=== PATIENT | female | born 1940 | race Asian ===

== ENCOUNTER → 2017-01-30 | Outpatient (CLI) | payer MEDICARE, OTHER ==
[~2017-01-30] MED LIST: ANUSHCS PR; ASCO500 PO; CHOL100062 PO; CYCL30DR OU; DOCU250C28 PO; DOCU250C91 PO; FERR-89 PO; FISH1CAP27 PO; FLU15OS OP; FURO20 PO; GLUC1CAP3 PO; LOSA50TA37 PO; METO100XL PO; METO50 PO; MULT1CAP32 PO; OMEP20 PO; POTA8TAB4 PO; SIMV-260 PO; UBID100C24 PO; VITA100049 PO; VITAD400 PO
== END | disposition home or self-care (01) ==
LOC: RADMN 08:26
PROVIDERS: ATTEND Internal Medicine Cardiovascular Disease
DX: M48.061 Spinal stenosis, lumbar region without neurogenic claudication (principal); M48.07 Spinal stenosis, lumbosacral region; M48.56XA Collapsed vertebra, not elsewhere classified, lumbar region, initial encounter for fracture; M47.816 Spondylosis without myelopathy or radiculopathy, lumbar region; M81.0 Age-related osteoporosis without current pathological fracture; I35.0 Nonrheumatic aortic (valve) stenosis
CPT/HCPCS: 72131

== ENCOUNTER 2017-02-03 09:02 | Day surgery (SDC) | payer MEDICARE, OTHER ==
[~2017-02-03] VITALS: Ht 149.9 cm; Wt 47.7 kg
[~2017-02-03 09:02] MED LIST changes: +0.9% SODIUM CHLORIDE 10 ML SYRINGE IVP ONE; +0.9% SODIUM CHLORIDE 10 ML SYRINGE IVP PRN; -ANUSHCS PR; -CHOL100062 PO; -DOCU250C28 PO; -FLU15OS OP; -FURO20 PO; -METO100XL PO; +METOPROLOL TARTRATE 50 MG TABLET PO ONE; -MULT1CAP32 PO; -OMEP20 PO; -VITA100049 PO
[2017-02-03 10:13] LABS: ANION GAP 8 mmol/L (8-16); CARBON DIOXIDE 28 mmol/L (22-29); CHLORIDE 107 mmol/L (98-107); CREATININE 0.47 mg/dL (0.60-1.30); GLOMERULAR FILTR. RATE CALC > 60 mL/min (>60); POTASSIUM 4.2 mmol/L (3.5-5.1); SODIUM SERUM 143 mmol/L (136-145); UREA NITROGEN, BLOOD 15 mg/dL (7-18)
[2017-02-03] MEDS ORDERED: NITROGLYCERIN 400 MCG/SUBLINGUAL SPRAY 4.9 GM BOTTLE SL ONE (11:06)
[2017-02-03] MEDS ORDERED: METOPROLOL TARTRATE 5 MG/5 ML VIAL ONE (11:06)
[2017-02-03] MEDS ORDERED: IOVERSOL 350 MG/ML 100 ML VIAL ONE (11:28)
== END 2017-02-03 12:30 | disposition home or self-care (01) ==
LOC: SURGERY 09:02
PROVIDERS: ATTEND Internal Medicine Cardiovascular Disease
DX: I25.10 Atherosclerotic heart disease of native coronary artery without angina pectoris (principal); Z79.899 Other long term (current) drug therapy; Z98.890 Other specified postprocedural states; Z90.89 Acquired absence of other organs; Z98.42 Cataract extraction status, left eye; Z98.41 Cataract extraction status, right eye; Z86.79 Personal history of other diseases of the circulatory system
CPT/HCPCS: 36415; 75574; 80048; 93005; Q9967; J3490

== ENCOUNTER 2018-03-23 19:10 | Inpatient (IN) | payer MEDICARE, OTHER ==
[~2018-03-23] VITALS: Ht 152.4 cm; Wt 49.2 kg
[~2018-03-23 19:10] MED LIST changes: -0.9% SODIUM CHLORIDE 10 ML SYRINGE IVP ONE; -0.9% SODIUM CHLORIDE 10 ML SYRINGE IVP PRN; -LOSA50TA37 PO; +LOSA50TA64 PO; -METOPROLOL TARTRATE 50 MG TABLET PO ONE
[2018-03-23] MEDS ORDERED: PROPOFOL 1000 MG/ISO-OSM 100 ML IV PRN (19:29)
[2018-03-23 19:53] LABS: BASOPHILS % (AUTO) 0.8 % (0.0-2.0); EOSINOPHILS % (AUTO) 1.5 % (1.0-6.0); HEMATOCRIT 41.6 % (36-46); HEMOGLOBIN 13.5 g/dL (12.0-16.0); LYMPHOCYTES # (AUTO) 6.3 K/uL (1.0-4.8); LYMPHOCYTES % (AUTO) 35.7 % (22.0-44.0); MEAN CORPUSCULAR HGB CONC 32.4 G/dL (31.0-37.0); MEAN CORPUSCULAR VOLUME 99 fL (80-100); MONOCYTES % (AUTO) 5.7 % (2.0-9.0); NEUTROPHILS # (AUTO) 9.9 K/uL (1.8-7.7); NEUTROPHILS % (AUTO) 56.3 % (40.0-70.0); PLATELET COUNT (AUTO) 208 K/uL (150-450); RED BLOOD CELL COUNT(AUTO) 4.21 MIL/uL (4.00-5.20); RED CELL DISTRIBUTION WIDTH 13.1 % (11.5-14.5)
[2018-03-23 20:05] LABS: CALCIUM, TOTAL 9.4 mg/dL (8.8-10.5); CREATININE 0.93 mg/dL (0.60-1.30); POTASSIUM 3.3 mmol/L (3.5-5.1)
[2018-03-23 20:06] LABS: INR 0.9 (0.9-1.1); PROTHROMBIN TIME 9.9 SEC (9.4-11.6)
[2018-03-23 20:29] LABS: ALBUMIN 3.8 g/dL (3.4-5.0); BILIRUBIN,TOTAL 0.5 mg/dL (0.1-1.0); TOTAL PROTEIN, SERUM 8.8 g/dL (6.4-8.2)
[2018-03-23 20:42] LABS: LACTIC ACID 6.5 mmol/L (0.4-2.0)
[2018-03-23] MEDS ORDERED: SODIUM CHLORIDE 0.9% 1,000 ML IV ONE ×2 (21:13→22:00)
[2018-03-23] MEDS ORDERED: SODIUM CHLORIDE 0.9% 1,000 ML, SODIUM CHLORIDE 0.9% 1,000 ML IV ONE (21:30)
[2018-03-23 21:56] LABS: APPEARANCE,URINE CLEAR (CLEAR); BILIRUBIN,URINE NEGATIVE (NEGATIVE); GLUCOSE, URINE (UA) 100 mg/dL (NEGATIVE); KETONES,URINE NEGATIVE (NEGATIVE); LEUKOCYTE ESTERASE ,URINE NEGATIVE (NEGATIVE); NITRATE,URINE NEGATIVE (NEGATIVE); OCCULT BLOOD,URINE SMALL (NEGATIVE); PROTEIN,URINE SEE CONFIRM (NEGATIVE); UROBILINOGEN,URINE 0.2 mg/dL (<=1.0)
[2018-03-23 22:01] LABS: AMPHET/METH SCREEN,URINE NEGATIVE (NEGATIVE); BARBITURATE SCREEN, URINE NEGATIVE (NEGATIVE); BENZODIAZEPINES SCREEN,URINE NEGATIVE (NEGATIVE); CANNABINOID SCREEN,URINE NEGATIVE (NEGATIVE); COCAINE SCREEN,URINE NEGATIVE (NEGATIVE); METHADONE SCREEN, URINE NEGATIVE (NEGATIVE); OPIATE SCREEN,URINE NEGATIVE (NEGATIVE)
[2018-03-23 22:04] LABS: PHENCYCLIDINE SCREEN,URINE NEGATIVE (NEGATIVE)
[2018-03-23 22:30] LABS: SULFOSALICYLIC ACID,URINE 2+ (Negative)
[2018-03-23 22:31] LABS: BACTERIA,URINE Rare /HPF (None Seen); SQUAMOUS EPITHELIAL CELL,UR Few /LPF (None Seen)
[2018-03-23] MEDS ORDERED: IPRATROPIUM BROMIDE 0.5 MG/2.5 ML NEB SOLUTION NEB ONE (22:45)
[2018-03-23] MEDS ORDERED: ALBUTEROL SULFATE 5 MG/ML 20 ML NEB SOLN [BULK] NEB ONE (22:45)
[2018-03-23] MEDS ORDERED: 0.9% SODIUM CHLORIDE 10 ML SYRINGE IVP PRN (22:45)
[2018-03-23] MEDS ORDERED: ACETAMINOPHEN 325 MG TABLET PO PRN (22:45)
[2018-03-23] MEDS ORDERED: AZITHROMYCIN 500 MG/NS 250 ML IV ONE (22:45)
[2018-03-23] MEDS ORDERED: CefTRIAXone 1 GM/DEXTROSE 50 ML IV ONE (22:45)
[2018-03-23] MEDS ORDERED: POTASSIUM CHLORIDE 20 MEQ ER TABLET PO ONE (22:45)
[2018-03-23] MEDS ORDERED: MAGNESIUM SULFATE 2 GM/WATER 50 ML IV PRN (23:00)
[2018-03-23] MEDS ORDERED: ALBUTEROL SULFATE 2.5 MG/0.5 ML NEB SOLUTION NEB PRN (23:00)
[2018-03-23] MEDS ORDERED: MAGNESIUM SULFATE 4 GM/WATER 100 ML IV PRN (23:00)
[2018-03-23] MEDS ORDERED: MAGNESIUM HYDROXIDE SUSPENSION 30 ML UDCUP PO PRN (23:00)
[2018-03-23] MEDS ORDERED: ONDANSETRON HCL 4 MG/2 ML VIAL IVP PRN (23:00)
[2018-03-23] MEDS ORDERED: POTASSIUM CHL 10 MEQ/WATER 50 ML IV PRN (23:00)
[2018-03-23] MEDS ORDERED: POTASSIUM CHLORIDE 20 MEQ ER TABLET PO PRN (23:00)
[2018-03-23] MEDS ORDERED: BISACODYL 10 MG RECTAL RECTAL SUPPOSITORY PR PRN (23:00)
[2018-03-23] MEDS ORDERED: MAGNESIUM OXIDE 400 MG TABLET PO PRN (23:00)
[2018-03-23] MEDS ORDERED: OxyCODONE HCL/ACETAMINOPHEN 5-325 MG TABLET PO PRN (23:00)
[2018-03-23] MEDS ORDERED: ZOLPIDEM TARTRATE 5 MG TABLET PO PRN (23:00)
[2018-03-23] MEDS ORDERED: MORPHINE SULFATE 4 MG/ML SYRINGE IVP PRN (23:00)
[2018-03-23] MEDS ORDERED: 0.9% SODIUM CHLORIDE 5 ML NEB SOLUTION NEB ONE (23:17)
[2018-03-23 23:30] VITALS: BP 116/56
[2018-03-24] MEDS ORDERED: SODIUM CHLORIDE 0.9% 250 ML IV ONE (00:27)
[2018-03-24 03:55] VITALS: BP 96/53
[2018-03-24] MEDS ORDERED: PNEUMOCOCCAL VACCINE POLYVALENT 0.5 ML VIAL [PPSV23] IM ONE (04:15)
[2018-03-24 06:24] LABS: BASOPHILS % (AUTO) 0.2 % (0.0-2.0); EOSINOPHILS % (AUTO) 0.1 % (1.0-6.0); HEMATOCRIT 34.9 % (36-46); LYMPHOCYTES # (AUTO) 0.7 K/uL (1.0-4.8); LYMPHOCYTES % (AUTO) 6.1 % (22.0-44.0); MEAN CORPUSCULAR HEMOGLOBIN 32.6 pg (26.0-34.0); MEAN CORPUSCULAR HGB CONC 34.4 G/dL (31.0-37.0); MEAN CORPUSCULAR VOLUME 95 fL (80-100); MONOCYTES # (AUTO) 0.7 K/uL (0.1-1.0); MONOCYTES % (AUTO) 6.3 % (2.0-9.0); NEUTROPHILS # (AUTO) 10.1 K/uL (1.8-7.7); PLATELET COUNT (AUTO) 168 K/uL (150-450); RED BLOOD CELL COUNT(AUTO) 3.69 MIL/uL (4.00-5.20)
[2018-03-24 06:34] LABS: HEMOGLOBIN A1C 5.7 % (4.5-6.2)
[2018-03-24 06:35] LABS: ALANINE AMINOTRANSFERASE 26 U/L (12-78); ALKALINE PHOSPHATASE 78 U/L (46-116); ANION GAP 9 mmol/L (8-16); ASPARTATE AMINOTRANSFERASE 38 U/L (15-37); BILIRUBIN,TOTAL 0.4 mg/dL (0.1-1.0); CARBON DIOXIDE 27 mmol/L (22-29); CHLORIDE 107 mmol/L (98-107); CREATININE 0.76 mg/dL (0.60-1.30); GLUCOSE,RANDOM 122 mg/dL (70-110); PHOSPHORUS 3.3 mg/dL (2.5-4.9); POTASSIUM 3.3 mmol/L (3.5-5.1); SODIUM SERUM 143 mmol/L (136-145); UREA NITROGEN, BLOOD 18 mg/dL (7-18)
[2018-03-24 06:42] LABS: NEUTROPHILS % (AUTO) 87.3 % (40.0-70.0)
[2018-03-24 06:50] LABS: GLOMERULAR FILTR. RATE CALC > 60 mL/min (>60)
[2018-03-24 07:19] VITALS: BP_SYST 107; BP_SYST 116; BP_DIAS 51; BP_DIAS 58
[2018-03-24] MEDS: CHOLECALCIFEROL (VIT D3) 400 UNITS TABLET PO SCH (08:11)
[2018-03-24] MEDS: PANTOPRAZOLE SODIUM 40 MG DR TABLET PO SCH (08:12)
[2018-03-24] MEDS: ASCORBIC ACID 500 MG TABLET PO SCH (08:12)
[2018-03-24] MEDS: FERROUS SULFATE 325 MG EC TABLET PO SCH ×2 (08:12→18:16)
[2018-03-24] MEDS: CycloSPORINE 0.05% 0.4 ML OPHTHALMIC EMULSION OU SCH ×2 (08:12→21:35)
[2018-03-24] MEDS: HEPARIN SODIUM,PORCINE 5,000 UNITS/ML VIAL SQ SCH ×2 (08:13→21:38)
[2018-03-24] MEDS: UBIDECARENONE 100 MG CAPSULE PO SCH (08:14)
[2018-03-24] MEDS: GLUCOSAMINE HCL/CHONDROITIN 500-400 MG TABLET PO SCH (08:14)
[2018-03-24] MEDS: ACETAMINOPHEN 325 MG TABLET PO PRN (08:15)
[2018-03-24] MEDS ORDERED: METOPROLOL TARTRATE 50 MG TABLET PO SCH (09:00)
[2018-03-24] MEDS ORDERED: LOSARTAN POTASSIUM 50 MG TABLET PO SCH (09:00)
[2018-03-24 11:10] VITALS: BP 89/46
[2018-03-24 12:22] VITALS: BP 124/66
[2018-03-24] MEDS ORDERED: 0.9% SODIUM CHLORIDE 5 ML NEB SOLUTION NEB ONE (18:42)
[2018-03-24 20:34] VITALS: BP 135/57
[2018-03-24] MEDS: DOCUSATE SODIUM 250 MG CAPSULE PO SCH ×2 (21:00→21:36)
[2018-03-24] MEDS: METOPROLOL TARTRATE 25 MG TABLET PO SCH (21:36)
[2018-03-24] MEDS: SIMVASTATIN 20 MG TABLET PO SCH (21:38)
[2018-03-24] MEDS: CefTRIAXone 1 GM/DEXTROSE 50 ML IV SCH (22:38)
[2018-03-25] VITALS (7 sets, daily range): BP systolic 99–150; BP diastolic 45–71
[2018-03-25] MEDS: ACETAMINOPHEN 325 MG TABLET PO PRN ×2 (00:15→08:40)
[2018-03-25] MEDS: AZITHROMYCIN 500 MG/NS 250 ML IV SCH (00:16)
[2018-03-25] MEDS: ALBUTEROL SULFATE 2.5 MG/0.5 ML NEB SOLUTION NEB SCH ×4 (01:38→23:26)
[2018-03-25] MEDS: IPRATROPIUM BROMIDE 0.5 MG/2.5 ML NEB SOLUTION NEB PRN ×2 (01:38→23:27)
[2018-03-25] MEDS ORDERED: 0.9% SODIUM CHLORIDE 5 ML NEB SOLUTION NEB ONE ×2 (08:11→14:48)
[2018-03-25] MEDS: METOPROLOL TARTRATE 25 MG TABLET PO SCH ×2 (08:37→20:10)
[2018-03-25] MEDS: OMEGA-3/DHA/EPA/FISH OIL 1,000 MG CAPSULE PO SCH (08:37)
[2018-03-25] MEDS: PANTOPRAZOLE SODIUM 40 MG DR TABLET PO SCH (08:37)
[2018-03-25] MEDS: FERROUS SULFATE 325 MG EC TABLET PO SCH ×2 (08:37→18:21)
[2018-03-25] MEDS: UBIDECARENONE 100 MG CAPSULE PO SCH (08:37)
[2018-03-25] MEDS: GLUCOSAMINE HCL/CHONDROITIN 500-400 MG TABLET PO SCH (08:37)
[2018-03-25] MEDS: CHOLECALCIFEROL (VIT D3) 400 UNITS TABLET PO SCH (08:37)
[2018-03-25] MEDS: ASCORBIC ACID 500 MG TABLET PO SCH (08:37)
[2018-03-25] MEDS: HEPARIN SODIUM,PORCINE 5,000 UNITS/ML VIAL SQ SCH ×2 (08:38→20:12)
[2018-03-25] MEDS: CycloSPORINE 0.05% 0.4 ML OPHTHALMIC EMULSION OU SCH ×2 (09:54→20:13)
[2018-03-25] MEDS: GuaiFENesin/CODEINE [SUGAR FREE] 200-20MG/10 ML SYRUP UDCUP PO PRN ×2 (16:36→22:23)
[2018-03-25] MEDS: SIMVASTATIN 20 MG TABLET PO SCH (20:10)
[2018-03-25] MEDS: DOCUSATE SODIUM 250 MG CAPSULE PO SCH (20:10)
[2018-03-25] MEDS: CefTRIAXone 1 GM/DEXTROSE 50 ML IV SCH (22:44)
[2018-03-26] VITALS (7 sets, daily range): BP systolic 109–154; BP diastolic 50–70
[2018-03-26] MEDS: AZITHROMYCIN 500 MG/NS 250 ML IV SCH (00:10)
[2018-03-26 07:02] LABS: BASOPHILS % (AUTO) 0.4 % (0.0-2.0); EOSINOPHILS % (AUTO) 3.3 % (1.0-6.0); HEMOGLOBIN 11.2 g/dL (12.0-16.0); LYMPHOCYTES # (AUTO) 1.2 K/uL (1.0-4.8); LYMPHOCYTES % (AUTO) 19.6 % (22.0-44.0); MEAN CORPUSCULAR HEMOGLOBIN 32.8 pg (26.0-34.0); MEAN CORPUSCULAR VOLUME 94 fL (80-100); MONOCYTES # (AUTO) 0.6 K/uL (0.1-1.0); MONOCYTES % (AUTO) 9.8 % (2.0-9.0); NEUTROPHILS # (AUTO) 4.2 K/uL (1.8-7.7); NEUTROPHILS % (AUTO) 66.9 % (40.0-70.0); PLATELET COUNT (AUTO) 165 K/uL (150-450); RED BLOOD CELL COUNT(AUTO) 3.41 MIL/uL (4.00-5.20); RED CELL DISTRIBUTION WIDTH 12.6 % (11.5-14.5)
[2018-03-26 07:18] LABS: ALANINE AMINOTRANSFERASE 22 U/L (12-78); ALBUMIN 2.6 g/dL (3.4-5.0); ALKALINE PHOSPHATASE 80 U/L (46-116); ANION GAP 6 mmol/L (8-16); ASPARTATE AMINOTRANSFERASE 28 U/L (15-37); BILIRUBIN,TOTAL 0.5 mg/dL (0.1-1.0); CARBON DIOXIDE 32 mmol/L (22-29); CHLORIDE 104 mmol/L (98-107); CREATININE 0.45 mg/dL (0.60-1.30); GLUCOSE,RANDOM 96 mg/dL (70-110); POTASSIUM 3.7 mmol/L (3.5-5.1); SODIUM SERUM 142 mmol/L (136-145); UREA NITROGEN, BLOOD 10 mg/dL (7-18)
[2018-03-26 07:36] LABS: GLOMERULAR FILTR. RATE CALC > 60 mL/min (>60)
[2018-03-26] MEDS: HEPARIN SODIUM,PORCINE 5,000 UNITS/ML VIAL SQ SCH ×2 (08:02→20:00)
[2018-03-26] MEDS: GLUCOSAMINE HCL/CHONDROITIN 500-400 MG TABLET PO SCH (08:02)
[2018-03-26] MEDS: UBIDECARENONE 100 MG CAPSULE PO SCH (08:03)
[2018-03-26] MEDS: METOPROLOL TARTRATE 25 MG TABLET PO SCH ×2 (08:03→20:44)
[2018-03-26] MEDS: CHOLECALCIFEROL (VIT D3) 400 UNITS TABLET PO SCH (08:04)
[2018-03-26] MEDS: ASCORBIC ACID 500 MG TABLET PO SCH (08:04)
[2018-03-26] MEDS: FERROUS SULFATE 325 MG EC TABLET PO SCH ×2 (08:04→18:20)
[2018-03-26] MEDS: OMEGA-3/DHA/EPA/FISH OIL 1,000 MG CAPSULE PO SCH (08:04)
[2018-03-26] MEDS: PANTOPRAZOLE SODIUM 40 MG DR TABLET PO SCH (08:04)
[2018-03-26] MEDS: CycloSPORINE 0.05% 0.4 ML OPHTHALMIC EMULSION OU SCH ×2 (08:05→20:45)
[2018-03-26] MEDS: ACETAMINOPHEN 325 MG TABLET PO PRN (08:11)
[2018-03-26] MEDS: GuaiFENesin/CODEINE [SUGAR FREE] 200-20MG/10 ML SYRUP UDCUP PO PRN ×4 (08:16→22:39)
[2018-03-26] MEDS ORDERED: 0.9% SODIUM CHLORIDE 5 ML NEB SOLUTION NEB ONE ×3 (09:12→22:52)
[2018-03-26] MEDS: ALBUTEROL SULFATE 2.5 MG/0.5 ML NEB SOLUTION NEB SCH ×3 (09:44→22:58)
[2018-03-26 15:22] LABS: QUANTIFERON+, Nil Value 0.04 IU/mL; QUANTIFERON+,Mitogen Value 2.31 IU/mL; QUANTIFERON+,TB1 Antigen Value 0.08 IU/mL; QUANTIFERON+,TB2 Antigen Value 0.07 IU/mL; QUANTIFERON, TB GOLD PLUS Negative (Negative)
[2018-03-26] MEDS: BENZONATATE 100 MG CAPSULE PO SCH ×2 (15:56→20:00)
[2018-03-26] MEDS: SIMVASTATIN 20 MG TABLET PO SCH (20:00)
[2018-03-26] MEDS: DOCUSATE SODIUM 250 MG CAPSULE PO SCH (20:00)
[2018-03-26] MEDS: CefTRIAXone 1 GM/DEXTROSE 50 ML IV SCH (22:46)
[2018-03-27] MEDS: AZITHROMYCIN 500 MG/NS 250 ML IV SCH (01:07)
[2018-03-27 04:07] VITALS: BP 106/50
[2018-03-27 06:36] LABS: BASOPHILS % (AUTO) 0.6 % (0.0-2.0); EOSINOPHILS % (AUTO) 3.8 % (1.0-6.0); HEMATOCRIT 31.9 % (36-46); HEMOGLOBIN 10.9 g/dL (12.0-16.0); LYMPHOCYTES # (AUTO) 1.2 K/uL (1.0-4.8); LYMPHOCYTES % (AUTO) 20.9 % (22.0-44.0); MEAN CORPUSCULAR HEMOGLOBIN 32.8 pg (26.0-34.0); MEAN CORPUSCULAR HGB CONC 34.3 G/dL (31.0-37.0); MEAN CORPUSCULAR VOLUME 96 fL (80-100); MONOCYTES # (AUTO) 0.6 K/uL (0.1-1.0); MONOCYTES % (AUTO) 10.5 % (2.0-9.0); NEUTROPHILS # (AUTO) 3.8 K/uL (1.8-7.7); NEUTROPHILS % (AUTO) 64.2 % (40.0-70.0); PLATELET COUNT (AUTO) 165 K/uL (150-450); RED BLOOD CELL COUNT(AUTO) 3.34 MIL/uL (4.00-5.20); RED CELL DISTRIBUTION WIDTH 12.4 % (11.5-14.5)
[2018-03-27 07:22] LABS: ALANINE AMINOTRANSFERASE 22 U/L (12-78); ALBUMIN 2.9 g/dL (3.4-5.0); ALKALINE PHOSPHATASE 75 U/L (46-116); ANION GAP 3 mmol/L (8-16); ASPARTATE AMINOTRANSFERASE 26 U/L (15-37); BILIRUBIN,TOTAL 0.3 mg/dL (0.1-1.0); CALCIUM, TOTAL 8.9 mg/dL (8.8-10.5); CARBON DIOXIDE 34 mmol/L (22-29); CHLORIDE 104 mmol/L (98-107); CREATININE 0.42 mg/dL (0.60-1.30); GLUCOSE,RANDOM 98 mg/dL (70-110); POTASSIUM 3.8 mmol/L (3.5-5.1); SODIUM SERUM 141 mmol/L (136-145); TOTAL PROTEIN, SERUM 6.8 g/dL (6.4-8.2); UREA NITROGEN, BLOOD 10 mg/dL (7-18)
[2018-03-27 07:23] LABS: GLOMERULAR FILTR. RATE CALC > 60 mL/min (>60)
[2018-03-27] MEDS: GuaiFENesin/CODEINE [SUGAR FREE] 200-20MG/10 ML SYRUP UDCUP PO PRN ×3 (08:00→20:52)
[2018-03-27] MEDS: OMEGA-3/DHA/EPA/FISH OIL 1,000 MG CAPSULE PO SCH (08:00)
[2018-03-27] MEDS: UBIDECARENONE 100 MG CAPSULE PO SCH (08:00)
[2018-03-27] MEDS: GLUCOSAMINE HCL/CHONDROITIN 500-400 MG TABLET PO SCH (08:00)
[2018-03-27] MEDS: ASCORBIC ACID 500 MG TABLET PO SCH (08:01)
[2018-03-27] MEDS: HEPARIN SODIUM,PORCINE 5,000 UNITS/ML VIAL SQ SCH ×2 (08:01→20:54)
[2018-03-27] MEDS: BENZONATATE 100 MG CAPSULE PO SCH ×3 (08:01→20:52)
[2018-03-27] MEDS: CycloSPORINE 0.05% 0.4 ML OPHTHALMIC EMULSION OU SCH ×2 (08:01→20:59)
[2018-03-27] MEDS: CHOLECALCIFEROL (VIT D3) 400 UNITS TABLET PO SCH (08:01)
[2018-03-27] MEDS: FERROUS SULFATE 325 MG EC TABLET PO SCH ×2 (08:01→17:46)
[2018-03-27] MEDS: METOPROLOL TARTRATE 25 MG TABLET PO SCH ×2 (08:01→20:54)
[2018-03-27] MEDS: PANTOPRAZOLE SODIUM 40 MG DR TABLET PO SCH (08:01)
[2018-03-27 08:24] VITALS: BP 132/64
[2018-03-27] MEDS: ALBUTEROL SULFATE 2.5 MG/0.5 ML NEB SOLUTION NEB SCH ×3 (08:31→23:22)
[2018-03-27] MEDS: IPRATROPIUM BROMIDE 0.5 MG/2.5 ML NEB SOLUTION NEB PRN ×2 (08:31→23:22)
[2018-03-27 11:50] VITALS: BP 129/66
[2018-03-27] MEDS ORDERED: SODIUM CHLORIDE 0.9% 100 ML ONE (12:29)
[2018-03-27] MEDS ORDERED: IOVERSOL 350 MG/ML 100 ML VIAL ONE (12:29)
[2018-03-27 15:49] VITALS: BP 128/60
[2018-03-27 19:59] VITALS: BP 153/73
[2018-03-27] MEDS: SIMVASTATIN 20 MG TABLET PO SCH (20:53)
[2018-03-27] MEDS: DOCUSATE SODIUM 250 MG CAPSULE PO SCH (20:53)
[2018-03-27] MEDS: CefTRIAXone 1 GM/DEXTROSE 50 ML IV SCH (22:40)
[2018-03-27 23:43] VITALS: BP 127/65
[2018-03-28] MEDS: AZITHROMYCIN 500 MG/NS 250 ML IV SCH (01:11)
[2018-03-28 03:38] VITALS: BP 135/60
[2018-03-28 06:22] LABS: ALANINE AMINOTRANSFERASE 22 U/L (12-78); ALBUMIN 2.8 g/dL (3.4-5.0); ALKALINE PHOSPHATASE 83 U/L (46-116); ANION GAP 5 mmol/L (8-16); ASPARTATE AMINOTRANSFERASE 28 U/L (15-37); BILIRUBIN,TOTAL 0.4 mg/dL (0.1-1.0); CALCIUM, TOTAL 8.7 mg/dL (8.8-10.5); CARBON DIOXIDE 33 mmol/L (22-29); CHLORIDE 103 mmol/L (98-107); CREATININE 0.48 mg/dL (0.60-1.30); GLUCOSE,RANDOM 98 mg/dL (70-110); POTASSIUM 3.7 mmol/L (3.5-5.1); SODIUM SERUM 141 mmol/L (136-145); TOTAL PROTEIN, SERUM 6.9 g/dL (6.4-8.2); UREA NITROGEN, BLOOD 10 mg/dL (7-18)
[2018-03-28 06:33] LABS: BASOPHILS % (AUTO) 0.4 % (0.0-2.0); EOSINOPHILS % (AUTO) 5.2 % (1.0-6.0); HEMATOCRIT 31.6 % (36-46); MEAN CORPUSCULAR HEMOGLOBIN 33.6 pg (26.0-34.0); MEAN CORPUSCULAR HGB CONC 34.9 G/dL (31.0-37.0); MEAN CORPUSCULAR VOLUME 96 fL (80-100); MONOCYTES # (AUTO) 0.6 K/uL (0.1-1.0); MONOCYTES % (AUTO) 11.8 % (2.0-9.0); NEUTROPHILS # (AUTO) 3.4 K/uL (1.8-7.7); NEUTROPHILS % (AUTO) 63.6 % (40.0-70.0); PLATELET COUNT (AUTO) 171 K/uL (150-450); RED BLOOD CELL COUNT(AUTO) 3.28 MIL/uL (4.00-5.20); RED CELL DISTRIBUTION WIDTH 12.4 % (11.5-14.5)
[2018-03-28 06:49] LABS: GLOMERULAR FILTR. RATE CALC > 60 mL/min (>60)
[2018-03-28] MEDS ORDERED: 0.9% SODIUM CHLORIDE 5 ML NEB SOLUTION NEB ONE ×2 (07:38→15:08)
[2018-03-28 07:44] VITALS: BP 115/61
[2018-03-28] MEDS: GuaiFENesin/CODEINE [SUGAR FREE] 200-20MG/10 ML SYRUP UDCUP PO PRN ×2 (07:44→15:46)
[2018-03-28] MEDS: ALBUTEROL SULFATE 2.5 MG/0.5 ML NEB SOLUTION NEB SCH ×3 (08:11→23:03)
[2018-03-28] MEDS: CycloSPORINE 0.05% 0.4 ML OPHTHALMIC EMULSION OU SCH ×2 (09:20→20:17)
[2018-03-28] MEDS: UBIDECARENONE 100 MG CAPSULE PO SCH (09:20)
[2018-03-28] MEDS: HEPARIN SODIUM,PORCINE 5,000 UNITS/ML VIAL SQ SCH ×2 (09:20→20:17)
[2018-03-28] MEDS: BENZONATATE 100 MG CAPSULE PO SCH ×3 (09:21→20:16)
[2018-03-28] MEDS: FERROUS SULFATE 325 MG EC TABLET PO SCH ×2 (09:21→18:04)
[2018-03-28] MEDS: ASCORBIC ACID 500 MG TABLET PO SCH (09:21)
[2018-03-28] MEDS: OMEGA-3/DHA/EPA/FISH OIL 1,000 MG CAPSULE PO SCH (09:21)
[2018-03-28] MEDS: GLUCOSAMINE HCL/CHONDROITIN 500-400 MG TABLET PO SCH (09:21)
[2018-03-28] MEDS: METOPROLOL TARTRATE 25 MG TABLET PO SCH ×2 (09:21→20:17)
[2018-03-28] MEDS: CHOLECALCIFEROL (VIT D3) 400 UNITS TABLET PO SCH (09:22)
[2018-03-28] MEDS: PANTOPRAZOLE SODIUM 40 MG DR TABLET PO SCH (09:22)
[2018-03-28 11:16] VITALS: BP 121/54
[2018-03-28 16:06] VITALS: BP 153/66
[2018-03-28] MEDS ORDERED: FUROSEMIDE 20 MG/2 ML VIAL IVP ONE (18:15)
[2018-03-28 20:13] VITALS: BP 139/71
[2018-03-28] MEDS: SIMVASTATIN 20 MG TABLET PO SCH (20:16)
[2018-03-28] MEDS: GuaiFENesin SR 600 MG ER TABLET PO SCH (20:16)
[2018-03-28] MEDS: HYDROCODONE/CHLORPHEN POLIS 10-8 MG/5 ML ORAL.SYG PO SCH (20:17)
[2018-03-28] MEDS: DOCUSATE SODIUM 250 MG CAPSULE PO SCH (20:18)
[2018-03-28] MEDS: IPRATROPIUM BROMIDE 0.5 MG/2.5 ML NEB SOLUTION NEB PRN (23:03)
[2018-03-28 23:36] VITALS: BP 127/68
[2018-03-28] MEDS: CefTRIAXone 1 GM/DEXTROSE 50 ML IV SCH (23:54)
[2018-03-29] MEDS: AZITHROMYCIN 500 MG/NS 250 ML IV SCH (00:31)
[2018-03-29 04:53] VITALS: BP 110/56
[2018-03-29 06:19] LABS: BASOPHILS % (AUTO) 0.4 % (0.0-2.0); EOSINOPHILS % (AUTO) 6.5 % (1.0-6.0); HEMATOCRIT 32.2 % (36-46); HEMOGLOBIN 11.2 g/dL (12.0-16.0); LYMPHOCYTES # (AUTO) 1.2 K/uL (1.0-4.8); LYMPHOCYTES % (AUTO) 24.7 % (22.0-44.0); MEAN CORPUSCULAR HEMOGLOBIN 32.9 pg (26.0-34.0); MEAN CORPUSCULAR HGB CONC 34.7 G/dL (31.0-37.0); MEAN CORPUSCULAR VOLUME 95 fL (80-100); MONOCYTES # (AUTO) 0.6 K/uL (0.1-1.0); MONOCYTES % (AUTO) 12.3 % (2.0-9.0); NEUTROPHILS # (AUTO) 2.6 K/uL (1.8-7.7); NEUTROPHILS % (AUTO) 56.1 % (40.0-70.0); PLATELET COUNT (AUTO) 191 K/uL (150-450); RED CELL DISTRIBUTION WIDTH 12.6 % (11.5-14.5)
[2018-03-29 07:01] LABS: ALANINE AMINOTRANSFERASE 29 U/L (12-78); ALBUMIN 2.8 g/dL (3.4-5.0); ALKALINE PHOSPHATASE 84 U/L (46-116); ANION GAP 5 mmol/L (8-16); ASPARTATE AMINOTRANSFERASE 41 U/L (15-37); BILIRUBIN,TOTAL 0.3 mg/dL (0.1-1.0); CARBON DIOXIDE 34 mmol/L (22-29); CHLORIDE 101 mmol/L (98-107); CREATININE 0.48 mg/dL (0.60-1.30); GLUCOSE,RANDOM 89 mg/dL (70-110); PHOSPHORUS 3.8 mg/dL (2.5-4.9); POTASSIUM 3.5 mmol/L (3.5-5.1); SODIUM SERUM 140 mmol/L (136-145); THYROID STIMULATING HORMONE 0.89 uIU/mL (0.36-3.74); TOTAL PROTEIN, SERUM 7.1 g/dL (6.4-8.2); UREA NITROGEN, BLOOD 14 mg/dL (7-18)
[2018-03-29 07:08] LABS: GLOMERULAR FILTR. RATE CALC > 60 mL/min (>60)
[2018-03-29 07:18] LABS: B-TYPE NATRIURETIC PEPTIDE 142 pg/mL (0-100)
[2018-03-29 07:48] VITALS: BP 120/59
[2018-03-29] MEDS ORDERED: 0.9% SODIUM CHLORIDE 5 ML NEB SOLUTION NEB ONE ×3 (08:31→23:19)
[2018-03-29] MEDS: ALBUTEROL SULFATE 2.5 MG/0.5 ML NEB SOLUTION NEB SCH ×3 (08:38→23:29)
[2018-03-29] MEDS: HYDROCODONE/CHLORPHEN POLIS 10-8 MG/5 ML ORAL.SYG PO SCH ×2 (09:29→20:35)
[2018-03-29] MEDS: PANTOPRAZOLE SODIUM 40 MG DR TABLET PO SCH (09:29)
[2018-03-29] MEDS: CHOLECALCIFEROL (VIT D3) 400 UNITS TABLET PO SCH (09:29)
[2018-03-29] MEDS: GuaiFENesin SR 600 MG ER TABLET PO SCH ×2 (09:29→20:35)
[2018-03-29] MEDS: ASCORBIC ACID 500 MG TABLET PO SCH (09:29)
[2018-03-29] MEDS: UBIDECARENONE 100 MG CAPSULE PO SCH (09:29)
[2018-03-29] MEDS: OMEGA-3/DHA/EPA/FISH OIL 1,000 MG CAPSULE PO SCH (09:29)
[2018-03-29] MEDS: GLUCOSAMINE HCL/CHONDROITIN 500-400 MG TABLET PO SCH (09:29)
[2018-03-29] MEDS: FERROUS SULFATE 325 MG EC TABLET PO SCH ×2 (09:29→18:04)
[2018-03-29] MEDS: HEPARIN SODIUM,PORCINE 5,000 UNITS/ML VIAL SQ SCH ×2 (09:30→20:35)
[2018-03-29] MEDS: BENZONATATE 100 MG CAPSULE PO SCH ×3 (09:30→20:35)
[2018-03-29] MEDS: METOPROLOL TARTRATE 25 MG TABLET PO SCH ×2 (09:30→20:35)
[2018-03-29] MEDS: CycloSPORINE 0.05% 0.4 ML OPHTHALMIC EMULSION OU SCH ×2 (09:30→20:34)
[2018-03-29 11:59] VITALS: BP 122/45
[2018-03-29 16:36] VITALS: BP 119/61
[2018-03-29 20:21] VITALS: BP 151/66
[2018-03-29] MEDS: SIMVASTATIN 20 MG TABLET PO SCH (20:35)
[2018-03-29] MEDS: DOCUSATE SODIUM 250 MG CAPSULE PO SCH (20:41)
[2018-03-29] MEDS: CefTRIAXone 1 GM/DEXTROSE 50 ML IV SCH (23:05)
[2018-03-29 23:23] VITALS: BP 138/64
[2018-03-30] MEDS ORDERED: SODIUM CHLORIDE 0.9% 250 ML IV ONE (00:09)
[2018-03-30] MEDS: AZITHROMYCIN 500 MG/NS 250 ML IV SCH (00:20)
[2018-03-30 04:48] VITALS: BP 117/54
[2018-03-30 06:04] LABS: BASOPHILS % (AUTO) 0.6 % (0.0-2.0); EOSINOPHILS % (AUTO) 5.3 % (1.0-6.0); HEMOGLOBIN 12.3 g/dL (12.0-16.0); LYMPHOCYTES # (AUTO) 1.6 K/uL (1.0-4.8); LYMPHOCYTES % (AUTO) 26.8 % (22.0-44.0); MEAN CORPUSCULAR HEMOGLOBIN 32.1 pg (26.0-34.0); MEAN CORPUSCULAR VOLUME 94 fL (80-100); MONOCYTES # (AUTO) 0.6 K/uL (0.1-1.0); MONOCYTES % (AUTO) 9.9 % (2.0-9.0); NEUTROPHILS # (AUTO) 3.5 K/uL (1.8-7.7); NEUTROPHILS % (AUTO) 57.4 % (40.0-70.0); PLATELET COUNT (AUTO) 229 K/uL (150-450); RED BLOOD CELL COUNT(AUTO) 3.82 MIL/uL (4.00-5.20); RED CELL DISTRIBUTION WIDTH 12.4 % (11.5-14.5)
[2018-03-30 06:43] LABS: ALANINE AMINOTRANSFERASE 41 U/L (12-78); ALBUMIN 3.1 g/dL (3.4-5.0); ALKALINE PHOSPHATASE 103 U/L (46-116); ANION GAP 7 mmol/L (8-16); ASPARTATE AMINOTRANSFERASE 49 U/L (15-37); BILIRUBIN,TOTAL 0.3 mg/dL (0.1-1.0); CALCIUM, TOTAL 9.5 mg/dL (8.8-10.5); CARBON DIOXIDE 32 mmol/L (22-29); CHLORIDE 99 mmol/L (98-107); CREATININE 0.58 mg/dL (0.60-1.30); GLUCOSE,RANDOM 93 mg/dL (70-110); POTASSIUM 4.1 mmol/L (3.5-5.1); SODIUM SERUM 138 mmol/L (136-145); TOTAL PROTEIN, SERUM 7.8 g/dL (6.4-8.2); UREA NITROGEN, BLOOD 15 mg/dL (7-18)
[2018-03-30 06:44] LABS: GLOMERULAR FILTR. RATE CALC > 60 mL/min (>60)
[2018-03-30 07:03] VITALS: BP 108/55
[2018-03-30] MEDS ORDERED: 0.9% SODIUM CHLORIDE 5 ML NEB SOLUTION NEB ONE ×2 (07:36→14:45)
[2018-03-30] MEDS: CycloSPORINE 0.05% 0.4 ML OPHTHALMIC EMULSION OU SCH ×2 (08:18→20:06)
[2018-03-30] MEDS: FERROUS SULFATE 325 MG EC TABLET PO SCH ×2 (08:18→17:49)
[2018-03-30] MEDS: GuaiFENesin SR 600 MG ER TABLET PO SCH ×2 (08:19→20:06)
[2018-03-30] MEDS: PANTOPRAZOLE SODIUM 40 MG DR TABLET PO SCH (08:19)
[2018-03-30] MEDS: HEPARIN SODIUM,PORCINE 5,000 UNITS/ML VIAL SQ SCH ×2 (08:19→20:06)
[2018-03-30] MEDS: METOPROLOL TARTRATE 25 MG TABLET PO SCH ×2 (08:19→20:06)
[2018-03-30] MEDS: OMEGA-3/DHA/EPA/FISH OIL 1,000 MG CAPSULE PO SCH (08:19)
[2018-03-30] MEDS: BENZONATATE 100 MG CAPSULE PO SCH ×3 (08:19→20:06)
[2018-03-30] MEDS: UBIDECARENONE 100 MG CAPSULE PO SCH (08:19)
[2018-03-30] MEDS: ASCORBIC ACID 500 MG TABLET PO SCH (08:19)
[2018-03-30] MEDS: GLUCOSAMINE HCL/CHONDROITIN 500-400 MG TABLET PO SCH (08:19)
[2018-03-30] MEDS: HYDROCODONE/CHLORPHEN POLIS 10-8 MG/5 ML ORAL.SYG PO SCH ×2 (08:20→20:06)
[2018-03-30] MEDS: CHOLECALCIFEROL (VIT D3) 400 UNITS TABLET PO SCH (08:20)
[2018-03-30] MEDS: ALBUTEROL SULFATE 2.5 MG/0.5 ML NEB SOLUTION NEB SCH ×3 (08:32→19:31)
[2018-03-30 11:44] VITALS: BP 105/47
[2018-03-30] MEDS ORDERED: PANT40TA25 PO (15:04)
[2018-03-30] MEDS ORDERED: FISH1CAP27 BU (15:05)
[2018-03-30] MEDS ORDERED: IPRA3AMP23 IH (15:06)
[2018-03-30] MEDS ORDERED: HYDR115S PO (15:07)
[2018-03-30] MEDS ORDERED: GUAI600T35 PO (15:09)
[2018-03-30] MEDS ORDERED: BENZ200C53 PO (15:10)
[2018-03-30] MEDS ORDERED: ALBU1.252 IH (15:13)
[2018-03-30] MEDS ORDERED: [UNRECOGNIZED DRUG - CODE] IV (15:14)
[2018-03-30] MEDS ORDERED: CEFT1PB IV (15:15)
[2018-03-30 15:20] VITALS: BP 114/54
[2018-03-30] MEDS: IPRATROPIUM BROMIDE 0.5 MG/2.5 ML NEB SOLUTION NEB SCH ×2 (15:22→19:31)
[2018-03-30 19:32] VITALS: BP 128/61
[2018-03-30] MEDS: SIMVASTATIN 20 MG TABLET PO SCH (20:06)
[2018-03-30] MEDS: DOCUSATE SODIUM 250 MG CAPSULE PO SCH (20:11)
== END 2018-03-30 21:50 | DRG 871 ==
LOC: EMS 19:12 → 5N 22:24
PROVIDERS: ADMIT Internal Medicine; ATTEND Internal Medicine
PROC: 5A1935Z Respiratory Ventilation, Less than 24 Consecutive Hours (ICD-10-PCS; principal; 2018-03-23)
PROC: 0BH18EZ Insertion of Endotracheal Airway into Trachea, Via Natural or Artificial Opening Endoscopic (ICD-10-PCS; 2018-03-23)
PROC: 0BH17EZ Insertion of Endotracheal Airway into Trachea, Via Natural or Artificial Opening (ICD-10-PCS; 2018-03-23)
PROC: 5A1935Z Respiratory Ventilation, Less than 24 Consecutive Hours (ICD-10-PCS; 2018-03-23)
PROC: 3E0234Z Introduction of Serum, Toxoid and Vaccine into Muscle, Percutaneous Approach (ICD-10-PCS; 2018-03-24)
DX: A41.9 Sepsis, unspecified organism (principal); J96.00 Acute respiratory failure, unspecified whether with hypoxia or hypercapnia; I50.31 Acute diastolic (congestive) heart failure; J18.9 Pneumonia, unspecified organism; J44.0 Chronic obstructive pulmonary disease with (acute) lower respiratory infection; E78.5 Hyperlipidemia, unspecified; E87.6 Hypokalemia; M19.90 Unspecified osteoarthritis, unspecified site; E55.9 Vitamin D deficiency, unspecified; I34.0 Nonrheumatic mitral (valve) insufficiency; K59.00 Constipation, unspecified; K21.9 Gastro-esophageal reflux disease without esophagitis; I11.0 Hypertensive heart disease with heart failure; R73.9 Hyperglycemia, unspecified; Z23 Encounter for immunization; Z79.899 Other long term (current) drug therapy; Z82.49 Family history of ischemic heart disease and other diseases of the circulatory system; Z98.49 Cataract extraction status, unspecified eye
CPT/HCPCS: 31500; 71260; 83036; 83605; 83735; 84100; 84132; 84443; 86480; 87040; 90732; 93005; 93306; 94002; 94640; 94644; 96365; 99291; G0378; J0456; J0696; J1644; J1940; J2704; J7030; J7050

== ENCOUNTER 2018-04-09 16:30 | Emergency (ER) | payer MEDICARE, OTHER ==
[~2018-04-09] VITALS: Ht 152.4 cm; Wt 47.3 kg
[~2018-04-09 16:30] MED LIST changes: +ALBU1.252 IH; +BENZ200C53 PO; +CEFT1PB IV; +FISH1CAP27 BU; +GUAI600T35 PO; +HYDR115S PO; +IPRA3AMP23 IH; +PANT40TA25 PO; +[UNRECOGNIZED DRUG - CODE] IV
[2018-04-09 19:07] LABS: BASOPHILS % (AUTO) 0.4 % (0.0-2.0); EOSINOPHILS % (AUTO) 3.3 % (1.0-6.0); HEMATOCRIT 40.3 % (36-46); HEMOGLOBIN 13.6 g/dL (12.0-16.0); LYMPHOCYTES # (AUTO) 0.7 K/uL (1.0-4.8); LYMPHOCYTES % (AUTO) 9.4 % (22.0-44.0); MEAN CORPUSCULAR HEMOGLOBIN 32.4 pg (26.0-34.0); MEAN CORPUSCULAR HGB CONC 33.8 G/dL (31.0-37.0); MEAN CORPUSCULAR VOLUME 96 fL (80-100); MONOCYTES # (AUTO) 0.7 K/uL (0.1-1.0); NEUTROPHILS # (AUTO) 6.1 K/uL (1.8-7.7); NEUTROPHILS % (AUTO) 77.9 % (40.0-70.0); PLATELET COUNT (AUTO) 286 K/uL (150-450); RED BLOOD CELL COUNT(AUTO) 4.21 MIL/uL (4.00-5.20); RED CELL DISTRIBUTION WIDTH 13.2 % (11.5-14.5)
[2018-04-09 19:18] LABS: ANION GAP 10 mmol/L (8-16); CALCIUM, TOTAL 9.3 mg/dL (8.8-10.5); CARBON DIOXIDE 28 mmol/L (22-29); CHLORIDE 99 mmol/L (98-107); CREATININE 0.65 mg/dL (0.60-1.30); GLUCOSE,RANDOM 99 mg/dL (70-110); POTASSIUM 3.9 mmol/L (3.5-5.1); SODIUM SERUM 137 mmol/L (136-145); UREA NITROGEN, BLOOD 10 mg/dL (7-18)
[2018-04-09 19:19] LABS: GLOMERULAR FILTR. RATE CALC > 60 mL/min (>60)
[2018-04-09 19:24] LABS: ALANINE AMINOTRANSFERASE 30 U/L (12-78); ALBUMIN 3.8 g/dL (3.4-5.0); ALKALINE PHOSPHATASE 93 U/L (46-116); ASPARTATE AMINOTRANSFERASE 25 U/L (15-37); BILIRUBIN,TOTAL 0.5 mg/dL (0.1-1.0); CREATINE KINASE, TOTAL ONLY 60 U/L (26-192); PROTHROMBIN TIME 10.6 SEC (9.4-11.6); TOTAL PROTEIN, SERUM 8.6 g/dL (6.4-8.2)
[2018-04-09 19:52] LABS: B-TYPE NATRIURETIC PEPTIDE 74 pg/mL (0-100)
[2018-04-09] MEDS ORDERED: LEVALBUTEROL HCL 1.25 MG/0.5 ML NEB SOLUTION NEB ONE (20:15)
[2018-04-09] MEDS ORDERED: IPRATROPIUM BROMIDE 0.5 MG/2.5 ML NEB SOLUTION NEB ONE (20:15)
[2018-04-09] MEDS ORDERED: 0.9% SODIUM CHLORIDE 5 ML NEB SOLUTION NEB ONE (20:15)
[2018-04-09] MEDS ORDERED: DEXAMETHASONE SOD PHOS 4 MG/ML 5 ML VIAL IM ONE (20:45)
[2018-04-09 21:42] VITALS: BP 130/69
== END 2018-04-09 21:59 | disposition home or self-care (01) ==
LOC: EMS 16:31
DX: J98.01 Acute bronchospasm (principal); I11.0 Hypertensive heart disease with heart failure; I50.9 Heart failure, unspecified; K21.9 Gastro-esophageal reflux disease without esophagitis; M19.90 Unspecified osteoarthritis, unspecified site; Z79.899 Other long term (current) drug therapy
CPT/HCPCS: 36415; 71045; 80053; 82550; 83880; 84484; 85025; 85610; 85730; 93005; 94640; 96372; 99285; J1100

== ENCOUNTER 2019-11-25 04:04 | Emergency (ER) | payer MEDICARE, OTHER ==
[~2019-11-25] VITALS: Ht 149.9 cm; Wt 50.9 kg
[~2019-11-25 04:04] MED LIST changes: -ALBU1.252 IH; -CEFT1PB IV; +CHOL400T56 PO; +DOCU-350 PO; -DOCU250C91 PO; -FISH1CAP27 PO; +LOSA50TA37 PO; -LOSA50TA64 PO; -PANT40TA25 PO; +PANT40TA54 PO; -UBID100C24 PO; +UBID100C44 PO; -VITAD400 PO; -[UNRECOGNIZED DRUG - CODE] IV
[2019-11-25 04:06] VITALS: BP 181/81
[2019-11-25] MEDS ORDERED: METO-391 PO (04:13)
[2019-11-25] MEDS ORDERED: GABA-529 PO (04:13)
[2019-11-25] MEDS ORDERED: ATOR40TA71 PO (04:13)
[2019-11-25] MEDS ORDERED: CLOP75TA32 PO (04:13)
[2019-11-25] MEDS ORDERED: AMLO2.5T29 PO (04:13)
[2019-11-25 05:21] LABS: ANION GAP 4 mmol/L (8-16); CALCIUM, TOTAL 9.4 mg/dL (8.8-10.5); CARBON DIOXIDE 32 mmol/L (22-29); CHLORIDE 104 mmol/L (98-107); CREATININE 0.77 mg/dL (0.60-1.30); GLUCOSE,RANDOM 99 mg/dL (70-110); SODIUM SERUM 140 mmol/L (136-145); UREA NITROGEN, BLOOD 11 mg/dL (7-18)
[2019-11-25 05:23] LABS: BASOPHILS % (AUTO) 0.4 % (0.0-2.0); EOSINOPHILS % (AUTO) 4.2 % (1.0-6.0); HEMATOCRIT 43.9 % (36-46); HEMOGLOBIN 14.9 g/dL (12.0-16.0); LYMPHOCYTES # (AUTO) 1.3 K/uL (1.0-4.8); LYMPHOCYTES % (AUTO) 21.2 % (22.0-44.0); MEAN CORPUSCULAR HEMOGLOBIN 31.5 pg (26.0-34.0); MEAN CORPUSCULAR VOLUME 93 fL (80-100); MONOCYTES # (AUTO) 0.5 K/uL (0.1-1.0); MONOCYTES % (AUTO) 9.2 % (2.0-9.0); NEUTROPHILS # (AUTO) 3.9 K/uL (1.8-7.7); PLATELET COUNT (AUTO) 190 K/uL (150-450); RED BLOOD CELL COUNT(AUTO) 4.73 MIL/uL (4.00-5.20); RED CELL DISTRIBUTION WIDTH 13.5 % (11.5-14.5)
[2019-11-25 05:25] LABS: GLOMERULAR FILTR. RATE CALC > 60 mL/min (>60)
[2019-11-25 05:26] LABS: ALANINE AMINOTRANSFERASE 19 U/L (12-78); ALBUMIN 3.6 g/dL (3.4-5.0); ALKALINE PHOSPHATASE 159 U/L (46-116); ASPARTATE AMINOTRANSFERASE 18 U/L (15-37); BILIRUBIN,TOTAL 0.5 mg/dL (0.1-1.0); TOTAL PROTEIN, SERUM 8.6 g/dL (6.4-8.2)
[2019-11-25] MEDS ORDERED: ALBUTEROL SULFATE HFA 90 MCG/PUFF 8 GM INHALER IH ONE (05:30)
[2019-11-25 05:56] LABS: B-TYPE NATRIURETIC PEPTIDE 49 pg/mL (0-100)
== END 2019-11-25 07:26 | disposition home or self-care (01) ==
LOC: EMS 04:04
DX: R06.02 Shortness of breath (principal); I11.0 Hypertensive heart disease with heart failure; I50.9 Heart failure, unspecified; K21.9 Gastro-esophageal reflux disease without esophagitis; Z20.828 Contact with and (suspected) exposure to other viral communicable diseases
CPT/HCPCS: 36415; 71045; 80053; 83880; 84484; 85025; 93005; 94640; 99285; U0003; J3535

== ENCOUNTER 2020-01-26 22:02 | Emergency (ER) | payer MEDICARE, OTHER ==
[~2020-01-26] VITALS: Ht 149.9 cm; Wt 51.8 kg
[~2020-01-26 22:02] MED LIST changes: +AMLO2.5T29 PO; -ASCO500 PO; +ATOR40TA71 PO; -BENZ200C53 PO; -CHOL400T56 PO; +CLOP75TA32 PO; -CYCL30DR OU; -DOCU-350 PO; -FERR-89 PO; -FISH1CAP27 BU; +GABA-529 PO; -GLUC1CAP3 PO; -GUAI600T35 PO; -HYDR115S PO; -IPRA3AMP23 IH; -LOSA50TA37 PO; +METO-391 PO; -METO50 PO; -PANT40TA54 PO; -POTA8TAB4 PO; -SIMV-260 PO; -UBID100C44 PO
[2020-01-26] MEDS ORDERED: ALBUTEROL SULFATE 5 MG/ML 20 ML NEB SOLN [BULK] NEB ONE ×2 (22:45→23:45)
[2020-01-26] MEDS ORDERED: 0.9% SODIUM CHLORIDE 5 ML NEB SOLUTION NEB ONE (22:58)
[2020-01-26 23:07] LABS: BASOPHILS % (AUTO) 0.6 % (0.0-2.0); EOSINOPHILS % (AUTO) 3.8 % (1.0-6.0); HEMATOCRIT 40.1 % (36-46); HEMOGLOBIN 13.5 g/dL (12.0-16.0); LYMPHOCYTES # (AUTO) 1.4 K/uL (1.0-4.8); MEAN CORPUSCULAR HEMOGLOBIN 31.1 pg (26.0-34.0); MEAN CORPUSCULAR HGB CONC 33.7 G/dL (31.0-37.0); MEAN CORPUSCULAR VOLUME 92 fL (80-100); MONOCYTES # (AUTO) 0.5 K/uL (0.1-1.0); MONOCYTES % (AUTO) 9.4 % (2.0-9.0); NEUTROPHILS # (AUTO) 2.8 K/uL (1.8-7.7); NEUTROPHILS % (AUTO) 57.2 % (40.0-70.0); PLATELET COUNT (AUTO) 170 K/uL (150-450); RED BLOOD CELL COUNT(AUTO) 4.34 MIL/uL (4.00-5.20); RED CELL DISTRIBUTION WIDTH 13.2 % (11.5-14.5)
[2020-01-26 23:09] LABS: COVID AG,FIA SOURCE NASOPHARYNGEAL
[2020-01-26 23:31] LABS: PROTHROMBIN TIME 10.1 SEC (9.4-11.6)
[2020-01-26 23:33] LABS: ANION GAP 6 mmol/L (8-16); CALCIUM, TOTAL 9.2 mg/dL (8.8-10.5); CARBON DIOXIDE 30 mmol/L (22-29); CHLORIDE 107 mmol/L (98-107); CREATININE 0.61 mg/dL (0.60-1.30); GLUCOSE,RANDOM 100 mg/dL (70-110); POTASSIUM 3.9 mmol/L (3.5-5.1); SODIUM SERUM 143 mmol/L (136-145); UREA NITROGEN, BLOOD 15 mg/dL (7-18)
[2020-01-26 23:34] LABS: INFLUENZA TYPE A NEGATIVE FOR TYPE A (NEGATIVE)
[2020-01-26 23:34] LABS: GLOMERULAR FILTR. RATE CALC > 60 mL/min (>60)
[2020-01-26 23:35] LABS: INFLUENZA TYPE B NEGATIVE FOR TYPE B (NEGATIVE)
[2020-01-26 23:38] LABS: ALANINE AMINOTRANSFERASE 22 U/L (12-78); ALBUMIN 3.3 g/dL (3.4-5.0); ALKALINE PHOSPHATASE 126 U/L (46-116); ASPARTATE AMINOTRANSFERASE 25 U/L (15-37); BILIRUBIN,TOTAL 0.4 mg/dL (0.1-1.0); LIPASE 480 U/L (73-393); TOTAL PROTEIN, SERUM 7.9 g/dL (6.4-8.2)
[2020-01-26] MEDS ORDERED: ACETAMINOPHEN 500 MG TABLET PO ONE (23:45)
[2020-01-26 23:53] LABS: B-TYPE NATRIURETIC PEPTIDE 54 pg/mL (0-100)
[2020-01-27] MEDS ORDERED: ALBUTEROL SULFATE HFA 90 MCG/PUFF 8 GM INHALER IH ONE (00:15)
[2020-01-27] MEDS ORDERED: 0.9% SODIUM CHLORIDE 5 ML NEB SOLUTION NEB ONE (00:48)
[2020-01-27 01:00] VITALS: BP 140/61
== END 2020-01-27 01:25 | disposition home or self-care (01) ==
LOC: EMS 22:04
DX: J45.909 Unspecified asthma, uncomplicated (principal); I11.0 Hypertensive heart disease with heart failure; I50.9 Heart failure, unspecified; K21.9 Gastro-esophageal reflux disease without esophagitis; Z20.828 Contact with and (suspected) exposure to other viral communicable diseases
CPT/HCPCS: 87426; 87804; 93005; 94640; 99291; J3535; 36415-L1; 36415-TC; 71045-TC; J7611

== ENCOUNTER 2020-02-16 22:44 | Emergency (ER) | payer MEDICARE, OTHER ==
[~2020-02-16] VITALS: Ht 149.9 cm; Wt 51.8 kg
[2020-02-17] MEDS ORDERED: ALBUTEROL SULFATE HFA 90 MCG/PUFF 8 GM INHALER IH ONE
[2020-02-17] MEDS ORDERED: IPRATROPIUM BROMIDE HFA 17 MCG/PUFF 12.9 GM INHALER IH ONE
[2020-02-17 00:03] LABS: BASOPHILS % (AUTO) 0.4 % (0.0-2.0); EOSINOPHILS % (AUTO) 3.7 % (1.0-6.0); HEMATOCRIT 37.3 % (36-46); HEMOGLOBIN 12.5 g/dL (12.0-16.0); LYMPHOCYTES # (AUTO) 1.5 K/uL (1.0-4.8); LYMPHOCYTES % (AUTO) 26.5 % (22.0-44.0); MEAN CORPUSCULAR HGB CONC 33.6 G/dL (31.0-37.0); MEAN CORPUSCULAR VOLUME 92 fL (80-100); MONOCYTES # (AUTO) 0.6 K/uL (0.1-1.0); NEUTROPHILS # (AUTO) 3.3 K/uL (1.8-7.7); NEUTROPHILS % (AUTO) 59.4 % (40.0-70.0); PLATELET COUNT (AUTO) 198 K/uL (150-450); RED BLOOD CELL COUNT(AUTO) 4.05 MIL/uL (4.00-5.20); RED CELL DISTRIBUTION WIDTH 13.3 % (11.5-14.5)
[2020-02-17 00:06] LABS: ANION GAP 4 mmol/L (8-16); CALCIUM, TOTAL 9.2 mg/dL (8.8-10.5); CARBON DIOXIDE 29 mmol/L (22-29); CHLORIDE 106 mmol/L (98-107); CREATININE 0.71 mg/dL (0.60-1.30); GLUCOSE,RANDOM 113 mg/dL (70-110); POTASSIUM 4.3 mmol/L (3.5-5.1); SODIUM SERUM 139 mmol/L (136-145); UREA NITROGEN, BLOOD 17 mg/dL (7-18)
[2020-02-17 00:08] LABS: GLOMERULAR FILTR. RATE CALC > 60 mL/min (>60)
[2020-02-17 00:13] LABS: ALANINE AMINOTRANSFERASE 22 U/L (12-78); ALBUMIN 3.2 g/dL (3.4-5.0); ALKALINE PHOSPHATASE 132 U/L (46-116); ASPARTATE AMINOTRANSFERASE 23 U/L (15-37); BILIRUBIN,TOTAL 0.4 mg/dL (0.1-1.0); TOTAL PROTEIN, SERUM 7.9 g/dL (6.4-8.2)
[2020-02-17 00:24] LABS: B-TYPE NATRIURETIC PEPTIDE 76 pg/mL (0-100)
[2020-02-17 01:55] VITALS: BP 134/80
[2020-03-22] MEDS ORDERED: BUDE90AE PO (11:53)
[2020-03-22] MEDS ORDERED: CLOP75TA14 PO (11:53)
[2020-03-22] MEDS ORDERED: ALBU8HFA IH (11:53)
[2020-03-22] MEDS ORDERED: METO-391 PO (11:53)
== END 2020-02-17 02:03 | disposition home or self-care (01) ==
LOC: EMS 22:44
DX: J45.901 Unspecified asthma with (acute) exacerbation (principal); I11.0 Hypertensive heart disease with heart failure; I50.9 Heart failure, unspecified; K21.9 Gastro-esophageal reflux disease without esophagitis
CPT/HCPCS: 93005; 94640; 99285; J3535; 36415-L1; 36415-TC; 71045-TC

== ENCOUNTER → 2020-03-22 | Outpatient (CLI) | payer MEDICARE, OTHER ==
[~2020-03-22] VITALS: Ht 149.9 cm; Wt 51.0 kg
[~2020-03-22] MED LIST changes: +ALBU8HFA IH; +BUDE90AE PO; +CLOP75TA14 PO
[2020-03-22 12:54] VITALS: BP 150/68
== END | disposition home or self-care (01) ==
LOC: SRCNTR 11:15
PROVIDERS: ATTEND Internal Medicine Critical Care Medicine
DX: I50.31 Acute diastolic (congestive) heart failure (principal); I50.9 Heart failure, unspecified; R06.2 Wheezing; F71 Moderate intellectual disabilities
CPT/HCPCS: G0463

== ENCOUNTER → 2020-07-09 | Outpatient (CLI) | payer MEDICARE, OTHER ==
[~2020-07-09] VITALS: Ht 149.9 cm; Wt 48.0 kg
[2020-07-09 13:34] VITALS: BP 139/63
== END | disposition home or self-care (01) ==
LOC: SRCNTR 10:56
PROVIDERS: ATTEND Internal Medicine Critical Care Medicine
DX: I50.31 Acute diastolic (congestive) heart failure (principal); R06.2 Wheezing; R05 Cough
CPT/HCPCS: G0463

== ENCOUNTER → 2020-09-05 | Outpatient (CLI) | payer MEDICARE, OTHER ==
[~2020-09-05] VITALS: Ht 149.9 cm; Wt 51.0 kg
[~2020-09-05] MED LIST changes: +AMLO-257 PO; -AMLO2.5T29 PO; -CLOP75TA14 PO; +FAMO20 PO; +FURO20 PO; +POTA8TAB71 PO
[2020-09-05 11:57] VITALS: BP 147/67
== END | disposition home or self-care (01) ==
LOC: SRCNTR 10:52
PROVIDERS: ATTEND Internal Medicine Critical Care Medicine
DX: I11.0 Hypertensive heart disease with heart failure (principal); I50.31 Acute diastolic (congestive) heart failure; I08.0 Rheumatic disorders of both mitral and aortic valves; E43 Unspecified severe protein-calorie malnutrition; N28.89 Other specified disorders of kidney and ureter; D64.9 Anemia, unspecified; J44.9 Chronic obstructive pulmonary disease, unspecified; K64.9 Unspecified hemorrhoids; K21.9 Gastro-esophageal reflux disease without esophagitis; R05 Cough; R06.2 Wheezing
CPT/HCPCS: G0463; Z7500

== ENCOUNTER 2020-11-08 01:35 | Emergency (ER) | payer MEDICARE, OTHER ==
[~2020-11-08] VITALS: Ht 149.9 cm; Wt 51.8 kg
[2020-11-08] MEDS ORDERED: ACETAMINOPHEN 500 MG TABLET PO ONE (03:30)
[2020-11-08 04:20] VITALS: BP 140/79
== END 2020-11-08 04:27 | disposition home or self-care (01) ==
LOC: EMS 01:36
DX: S42.401A Unspecified fracture of lower end of right humerus, initial encounter for closed fracture (principal); I11.0 Hypertensive heart disease with heart failure; I50.9 Heart failure, unspecified; K21.9 Gastro-esophageal reflux disease without esophagitis; Z79.899 Other long term (current) drug therapy; W01.0XXA Fall on same level from slipping, tripping and stumbling without subsequent striking against object, initial encounter; Y93.89 Activity, other specified; Y92.89 Other specified places as the place of occurrence of the external cause; Y99.8 Other external cause status
CPT/HCPCS: 29105; 70450; 70486; 72125; 99285

== ENCOUNTER → 2021-05-03 | Outpatient (CLI) | payer MEDICARE, OTHER ==
[~2021-05-03] VITALS: Ht 149.9 cm; Wt 50.5 kg
[2021-05-03 11:58] VITALS: BP 133/60
== END | disposition home or self-care (01) ==
LOC: SRCNTR 11:18
PROVIDERS: ATTEND Internal Medicine Critical Care Medicine
DX: I11.0 Hypertensive heart disease with heart failure (principal); I50.31 Acute diastolic (congestive) heart failure; E43 Unspecified severe protein-calorie malnutrition; D64.9 Anemia, unspecified; K64.8 Other hemorrhoids; E78.5 Hyperlipidemia, unspecified; K21.9 Gastro-esophageal reflux disease without esophagitis
CPT/HCPCS: G0463; Z7500

== ENCOUNTER → 2021-05-31 | Outpatient (CLI) | payer MEDICARE, OTHER ==
[~2021-05-31] VITALS: Ht 147.3 cm; Wt 49.0 kg
[2021-05-31 10:47] VITALS: BP 130/60
== END | disposition home or self-care (01) ==
LOC: SRCNTR 10:19
PROVIDERS: ATTEND Internal Medicine Critical Care Medicine
DX: I11.0 Hypertensive heart disease with heart failure (principal); I50.31 Acute diastolic (congestive) heart failure; I34.0 Nonrheumatic mitral (valve) insufficiency; J98.4 Other disorders of lung; D64.9 Anemia, unspecified; E78.5 Hyperlipidemia, unspecified; K64.9 Unspecified hemorrhoids; K21.9 Gastro-esophageal reflux disease without esophagitis; N28.89 Other specified disorders of kidney and ureter; M95.4 Acquired deformity of chest and rib; E43 Unspecified severe protein-calorie malnutrition; Z68.20 Body mass index [BMI] 20.0-20.9, adult; Z79.899 Other long term (current) drug therapy; Z98.890 Other specified postprocedural states; R58 Hemorrhage, not elsewhere classified; W19.XXXA Unspecified fall, initial encounter; Y93.89 Activity, other specified; Y92.89 Other specified places as the place of occurrence of the external cause; Y99.8 Other external cause status
CPT/HCPCS: G0463; Z7500

== ENCOUNTER 2021-07-27 20:01 | Emergency (ER) | payer MEDICARE, OTHER ==
[~2021-07-27] VITALS: Ht 149.9 cm; Wt 50.0 kg
[2021-07-27 21:06] LABS: BASOPHILS % (AUTO) 0.4 % (0.0-2.0); EOSINOPHILS % (AUTO) 1.7 % (1.0-6.0); HEMATOCRIT 39.1 % (36-46); HEMOGLOBIN 12.1 g/dL (12.0-16.0); LYMPHOCYTES # (AUTO) 0.9 K/uL (1.0-4.8); MEAN CORPUSCULAR HGB CONC 30.8 G/dL (31.0-37.0); MEAN CORPUSCULAR VOLUME 78 fL (80-100); MONOCYTES # (AUTO) 0.5 K/uL (0.1-1.0); MONOCYTES % (AUTO) 7.4 % (2.0-9.0); NEUTROPHILS # (AUTO) 4.9 K/uL (1.8-7.7); NEUTROPHILS % (AUTO) 76.5 % (40.0-70.0); PLATELET COUNT (AUTO) 227 K/uL (150-450); RED BLOOD CELL COUNT(AUTO) 5.02 MIL/uL (4.00-5.20); RED CELL DISTRIBUTION WIDTH 26.1 % (11.5-14.5)
[2021-07-27 21:09] LABS: ANION GAP 9 mmol/L (8-16); CALCIUM, TOTAL 9.7 mg/dL (8.8-10.5); CARBON DIOXIDE 30 mmol/L (22-29); CHLORIDE 101 mmol/L (98-107); CREATININE 0.77 mg/dL (0.60-1.30); GLOMERULAR FILTR. RATE CALC > 60 mL/min (>60); GLUCOSE,RANDOM 98 mg/dL (70-110); POTASSIUM 3.4 mmol/L (3.5-5.1); SODIUM SERUM 140 mmol/L (136-145); UREA NITROGEN, BLOOD 22 mg/dL (7-18)
[2021-07-27 21:14] LABS: PROTHROMBIN TIME 10.4 SEC (9.4-11.6)
[2021-07-27 21:17] LABS: ALANINE AMINOTRANSFERASE 22 U/L (12-78); ALBUMIN 3.8 g/dL (3.4-5.0); ALKALINE PHOSPHATASE 119 U/L (46-116); ASPARTATE AMINOTRANSFERASE 27 U/L (15-37); BILIRUBIN,TOTAL 0.5 mg/dL (0.1-1.0)
[2021-07-27 21:24] LABS: B-TYPE NATRIURETIC PEPTIDE 68 pg/mL (0-100)
[2021-07-27 21:55] LABS: APPEARANCE,URINE HAZY (CLEAR); BILIRUBIN,URINE NEGATIVE (NEGATIVE); GLUCOSE, URINE (UA) NEGATIVE (NEGATIVE); KETONES,URINE NEGATIVE (NEGATIVE); LEUKOCYTE ESTERASE ,URINE LARGE (NEGATIVE); NITRATE,URINE POSITIVE (NEGATIVE); OCCULT BLOOD,URINE TRACE (NEGATIVE); PH,URINE 6.5 (5.0-8.0); PROTEIN,URINE NEGATIVE (NEGATIVE); SPECIFIC GRAVITIY, URINE 1.013 (1.003-1.030); UROBILINOGEN,URINE <=1.0 mg/dL (<=1.0)
[2021-07-27 22:04] LABS: BACTERIA,URINE Many /HPF (None Seen); SQUAMOUS EPITHELIAL CELL,UR Rare /LPF (None Seen); WBC,URINE 26-50 /HPF (0-5)
[2021-07-27] MEDS ORDERED: CEPH-556 PO (23:42)
[2021-07-27] MEDS ORDERED: POLY17PO47 PO (23:42)
[2021-07-27 23:50] VITALS: BP 140/75
== END 2021-07-27 22:49 | disposition home or self-care (01) ==
LOC: EMS 20:06
DX: K64.8 Other hemorrhoids (principal); N39.0 Urinary tract infection, site not specified; M19.90 Unspecified osteoarthritis, unspecified site; I11.0 Hypertensive heart disease with heart failure; I50.9 Heart failure, unspecified; H54.7 Unspecified visual loss; Z86.2 Personal history of diseases of the blood and blood-forming organs and certain disorders involving the immune mechanism; Z87.19 Personal history of other diseases of the digestive system; Z98.890 Other specified postprocedural states
CPT/HCPCS: 71045; 80053; 81001; 83880; 84484; 85025; 85610; 85730; 87086; 93005; 99285; 36415-L1; 36415-TC

== ENCOUNTER 2022-07-18 17:19 | Inpatient (IN) | payer MEDICARE, OTHER ==
[~2022-07-18] VITALS: Ht 152.4 cm; Wt 45.9 kg
[~2022-07-18 17:19] MED LIST changes: +ALBU18HF12 IH; -ALBU8HFA IH; +CEPH-556 PO; +LORazepam 2 MG/ML VIAL ONE; +POLY17PO47 PO
[2022-07-18 18:33] LABS: BASOPHILS % (AUTO) 0.3 % (0.0-2.0); EOSINOPHILS % (AUTO) 0.1 % (1.0-6.0); HEMATOCRIT 37.1 % (36-46); LYMPHOCYTES # (AUTO) 0.7 K/uL (1.0-4.8); MEAN CORPUSCULAR HEMOGLOBIN 21.5 pg (26.0-34.0); MEAN CORPUSCULAR HGB CONC 29.6 G/dL (31.0-37.0); MEAN CORPUSCULAR VOLUME 73 fL (80-100); MONOCYTES # (AUTO) 0.7 K/uL (0.1-1.0); MONOCYTES % (AUTO) 5.6 % (2.0-9.0); NEUTROPHILS # (AUTO) 10.7 K/uL (1.8-7.7); PLATELET COUNT (AUTO) 308 K/uL (150-450); RED BLOOD CELL COUNT(AUTO) 5.11 MIL/uL (4.00-5.20); RED CELL DISTRIBUTION WIDTH 18.1 % (11.5-14.5)
[2022-07-18 18:49] LABS: ALBUMIN 3.6 g/dL (3.4-5.0); BILIRUBIN,TOTAL 0.7 mg/dL (0.1-1.0); CREATININE 1.09 mg/dL (0.60-1.30); PROTHROMBIN TIME 10.3 SEC (9.4-11.6); TOTAL PROTEIN, SERUM 8.3 g/dL (6.4-8.2)
[2022-07-18] MEDS ORDERED: POTASSIUM CHLORIDE 20 MEQ ER TABLET PO ONE (19:30)
[2022-07-18 20:23] LABS: APPEARANCE,URINE HAZY (CLEAR); BILIRUBIN,URINE NEGATIVE (NEGATIVE); GLUCOSE, URINE (UA) 300-500 mg/dL (NEGATIVE); LEUKOCYTE ESTERASE ,URINE LARGE (NEGATIVE); NITRATE,URINE NEGATIVE (NEGATIVE); OCCULT BLOOD,URINE NEGATIVE (NEGATIVE); PH,URINE 5.5 (5.0-8.0); PROTEIN,URINE TRACE mg/dL (NEGATIVE); SPECIFIC GRAVITIY, URINE 1.016 (1.003-1.030); UROBILINOGEN,URINE <=1.0 mg/dL (<=1.0)
[2022-07-18 20:31] LABS: SQUAMOUS EPITHELIAL CELL,UR Many /LPF (None Seen)
[2022-07-18 20:32] LABS: BACTERIA,URINE Many /HPF (None Seen); RBC,URINE None Seen /HPF (0-2); WBC,URINE 51-100 /HPF (0-5)
[2022-07-18] MEDS ORDERED: CefTRIAXone 1 GM/DEXTROSE 50 ML IV ONE (20:45)
[2022-07-18] MEDS ORDERED: SODIUM CHLORIDE 0.9% 500 ML IV ONE (21:00)
[2022-07-18] MEDS ORDERED: ACETAMINOPHEN 325 MG TABLET PO PRN (22:15)
[2022-07-18] MEDS ORDERED: ONDANSETRON HCL 4 MG/2 ML VIAL IVP PRN (22:15)
[2022-07-18] MEDS ORDERED: RINGERS SOLUTION,LACTATED 500 ML IV ONE (22:15)
[2022-07-18] MEDS: RINGERS SOLUTION,LACTATED 1,000 ML IV SCH (22:26)
[2022-07-18 23:25] LABS: COVID AG,FIA SOURCE NASAL SWAB
[2022-07-19 01:44] VITALS: BP 130/81
[2022-07-19 04:43] VITALS: BP 124/52
[2022-07-19 06:48] LABS: BASOPHILS % (AUTO) 0.4 % (0.0-2.0); EOSINOPHILS % (AUTO) 0.4 % (1.0-6.0); HEMATOCRIT 32.3 % (36-46); LYMPHOCYTES # (AUTO) 1.1 K/uL (1.0-4.8); LYMPHOCYTES % (AUTO) 9.9 % (22.0-44.0); MEAN CORPUSCULAR HEMOGLOBIN 22.4 pg (26.0-34.0); MEAN CORPUSCULAR HGB CONC 30.9 G/dL (31.0-37.0); MEAN CORPUSCULAR VOLUME 72 fL (80-100); MONOCYTES # (AUTO) 0.7 K/uL (0.1-1.0); MONOCYTES % (AUTO) 6.5 % (2.0-9.0); NEUTROPHILS % (AUTO) 82.8 % (40.0-70.0); PLATELET COUNT (AUTO) 262 K/uL (150-450); RED BLOOD CELL COUNT(AUTO) 4.47 MIL/uL (4.00-5.20); RED CELL DISTRIBUTION WIDTH 18.1 % (11.5-14.5)
[2022-07-19 07:05] LABS: ANION GAP 12 mmol/L (8-16); CARBON DIOXIDE 26 mmol/L (22-29); CHLORIDE 104 mmol/L (98-107); CREATININE 0.68 mg/dL (0.60-1.30); GLOMERULAR FILTR. RATE CALC > 60 mL/min (>60); GLUCOSE,RANDOM 78 mg/dL (70-110); POTASSIUM 3.7 mmol/L (3.5-5.1); SODIUM SERUM 142 mmol/L (136-145)
[2022-07-19 08:03] VITALS: BP 143/76
[2022-07-19] MEDS: DOCUSATE SODIUM 100 MG CAPSULE PO SCH ×2 (08:28→20:26)
[2022-07-19] MEDS: HEPARIN SODIUM,PORCINE 5,000 UNITS/ML VIAL SQ SCH ×4 (08:29→22:56)
[2022-07-19] MEDS: RINGERS SOLUTION,LACTATED 1,000 ML IV SCH ×2 (11:41→22:57)
[2022-07-19 15:58] VITALS: BP 118/69
[2022-07-19 19:59] VITALS: BP 110/65
[2022-07-19] MEDS: CefTRIAXone 1 GM/DEXTROSE 50 ML IV SCH (20:26)
[2022-07-20 03:55] VITALS: BP 144/84
[2022-07-20 07:57] VITALS: BP 147/73
[2022-07-20] MEDS: HEPARIN SODIUM,PORCINE 5,000 UNITS/ML VIAL SQ SCH ×3 (08:00→23:32)
[2022-07-20] MEDS ORDERED: LORazepam 2 MG/ML VIAL IVP ONE (08:30)
[2022-07-20 08:58] LABS: BASOPHILS % (AUTO) 0.8 % (0.0-2.0); EOSINOPHILS % (AUTO) 1.9 % (1.0-6.0); HEMATOCRIT 34.7 % (36-46); HEMOGLOBIN 10.7 g/dL (12.0-16.0); LYMPHOCYTES # (AUTO) 1.7 K/uL (1.0-4.8); LYMPHOCYTES % (AUTO) 18.6 % (22.0-44.0); MEAN CORPUSCULAR HEMOGLOBIN 22.2 pg (26.0-34.0); MEAN CORPUSCULAR HGB CONC 30.8 G/dL (31.0-37.0); MEAN CORPUSCULAR VOLUME 72 fL (80-100); MONOCYTES # (AUTO) 0.8 K/uL (0.1-1.0); MONOCYTES % (AUTO) 8.2 % (2.0-9.0); NEUTROPHILS # (AUTO) 6.5 K/uL (1.8-7.7); NEUTROPHILS % (AUTO) 70.5 % (40.0-70.0); PLATELET COUNT (AUTO) 283 K/uL (150-450); RED CELL DISTRIBUTION WIDTH 18.3 % (11.5-14.5)
[2022-07-20] MEDS: DOCUSATE SODIUM 100 MG CAPSULE PO SCH ×2 (09:00→20:40)
[2022-07-20 09:04] LABS: ANION GAP 6 mmol/L (8-16); CALCIUM, TOTAL 9.2 mg/dL (8.8-10.5); CARBON DIOXIDE 31 mmol/L (22-29); CHLORIDE 103 mmol/L (98-107); CREATININE 0.64 mg/dL (0.60-1.30); GLOMERULAR FILTR. RATE CALC > 60 mL/min (>60); GLUCOSE,RANDOM 91 mg/dL (70-110); POTASSIUM 3.4 mmol/L (3.5-5.1); SODIUM SERUM 140 mmol/L (136-145)
[2022-07-20] MEDS ORDERED: IOHEXOL 350 MG/ML 100 ML VIAL ONE (09:07)
[2022-07-20] MEDS ORDERED: SODIUM CHLORIDE 0.9% 100 ML ONE (09:07)
[2022-07-20 09:15] LABS: INR 0.9 (0.9-1.1); PROTHROMBIN TIME 10.1 SEC (9.4-11.6)
[2022-07-20 09:19] LABS: ALANINE AMINOTRANSFERASE 18 U/L (12-78); ALBUMIN 3.1 g/dL (3.4-5.0); ALKALINE PHOSPHATASE 85 U/L (46-116); ASPARTATE AMINOTRANSFERASE 29 U/L (15-37); BILIRUBIN,TOTAL 0.6 mg/dL (0.1-1.0); THYROID STIMULATING HORMONE 0.93 uIU/mL (0.36-3.74); TOTAL PROTEIN, SERUM 7.5 g/dL (6.4-8.2)
[2022-07-20 12:11] LABS: GLUCOMETER DEV NAME(LOC) 6N.1; GLUCOSE,POINT OF CARE 81 MG/DL (70-110)
[2022-07-20 12:23] VITALS: BP 121/77
[2022-07-20 15:39] VITALS: BP 122/64
[2022-07-20] MEDS: RINGERS SOLUTION,LACTATED 1,000 ML IV SCH (17:00)
[2022-07-20 20:40] VITALS: BP 128/65
[2022-07-20] MEDS: CefTRIAXone 1 GM/DEXTROSE 50 ML IV SCH (22:33)
[2022-07-20] MEDS ORDERED: SODIUM CHLORIDE 0.9% 500 ML IV ONE (22:37)
[2022-07-21 01:34] VITALS: BP 154/84
[2022-07-21] MEDS: RINGERS SOLUTION,LACTATED 1,000 ML IV SCH ×3 (01:52→16:08)
[2022-07-21 07:45] VITALS: BP 162/85
[2022-07-21] MEDS: HEPARIN SODIUM,PORCINE 5,000 UNITS/ML VIAL SQ SCH ×2 (08:00→16:00)
[2022-07-21] MEDS: DOCUSATE SODIUM 100 MG CAPSULE PO SCH ×3 (08:50→21:00)
[2022-07-21 15:57] VITALS: BP 151/92
[2022-07-21 20:04] VITALS: BP 168/89
[2022-07-21] MEDS: CefTRIAXone 1 GM/DEXTROSE 50 ML IV SCH (20:57)
[2022-07-22 00:15] VITALS: BP 133/113
[2022-07-22] MEDS: RINGERS SOLUTION,LACTATED 1,000 ML IV SCH ×2 (02:36→13:05)
[2022-07-22 04:02] VITALS: BP 135/80
[2022-07-22 07:18] VITALS: BP 162/93
[2022-07-22] MEDS: HEPARIN SODIUM,PORCINE 5,000 UNITS/ML VIAL SQ SCH ×4 (08:00→23:31)
[2022-07-22] MEDS: DOCUSATE SODIUM 100 MG CAPSULE PO SCH ×2 (08:11→20:18)
[2022-07-22 11:13] VITALS: BP 156/89
[2022-07-22 19:54] VITALS: BP 115/96
[2022-07-22] MEDS: CefTRIAXone 1 GM/DEXTROSE 50 ML IV SCH (20:18)
[2022-07-22 23:30] VITALS: BP 146/73
[2022-07-23] MEDS: RINGERS SOLUTION,LACTATED 1,000 ML IV SCH ×2 (02:35→15:06)
[2022-07-23 06:33] VITALS: BP 178/85
[2022-07-23] MEDS: CloNIDine HCL 0.1 MG TABLET PO PRN ×2 (07:08→09:26)
[2022-07-23 07:43] VITALS: BP 165/104
[2022-07-23] MEDS: DOCUSATE SODIUM 100 MG CAPSULE PO SCH ×3 (09:00→20:56)
[2022-07-23] MEDS: HEPARIN SODIUM,PORCINE 5,000 UNITS/ML VIAL SQ SCH ×2 (09:26→17:02)
[2022-07-23] MEDS ORDERED: HydrALAZINE HCL 20 MG/ML VIAL IVP PRN (09:45)
[2022-07-23 12:06] VITALS: BP 125/79
[2022-07-23] MEDS ORDERED: SODIUM CHLORIDE 0.9% 500 ML IV ONE (13:15)
[2022-07-23] MEDS ORDERED: DILTIAZEM HCL 5 MG/ML 5 ML VIAL IVP ONE (13:15)
[2022-07-23 15:36] VITALS: BP 155/88
[2022-07-23] MEDS ORDERED: POTASSIUM CHLORIDE 20 MEQ ER TABLET PO PRN (16:45)
[2022-07-23] MEDS ORDERED: METOPROLOL TARTRATE 5 MG/5 ML VIAL IVP ONE (16:45)
[2022-07-23] MEDS ORDERED: POTASSIUM CHL 10 MEQ/WATER 50 ML IV PRN (16:45)
[2022-07-23 18:05] LABS: BASOPHILS % (AUTO) 0.5 % (0.0-2.0); EOSINOPHILS % (AUTO) 0.6 % (1.0-6.0); HEMOGLOBIN 10.6 g/dL (12.0-16.0); LYMPHOCYTES # (AUTO) 0.5 K/uL (1.0-4.8); LYMPHOCYTES % (AUTO) 4.2 % (22.0-44.0); MEAN CORPUSCULAR HEMOGLOBIN 21.3 pg (26.0-34.0); MEAN CORPUSCULAR HGB CONC 29.3 G/dL (31.0-37.0); MEAN CORPUSCULAR VOLUME 73 fL (80-100); MONOCYTES # (AUTO) 0.6 K/uL (0.1-1.0); MONOCYTES % (AUTO) 5.6 % (2.0-9.0); NEUTROPHILS # (AUTO) 10.2 K/uL (1.8-7.7); NEUTROPHILS % (AUTO) 89.1 % (40.0-70.0); PLATELET COUNT (AUTO) 297 K/uL (150-450); RED BLOOD CELL COUNT(AUTO) 4.97 MIL/uL (4.00-5.20); RED CELL DISTRIBUTION WIDTH 18.7 % (11.5-14.5)
[2022-07-23 18:13] LABS: ANION GAP 8 mmol/L (8-16); CALCIUM, TOTAL 8.9 mg/dL (8.8-10.5); CARBON DIOXIDE 27 mmol/L (22-29); CHLORIDE 107 mmol/L (98-107); CREATININE 0.64 mg/dL (0.60-1.30); GLOMERULAR FILTR. RATE CALC > 60 mL/min (>60); GLUCOSE,RANDOM 123 mg/dL (70-110); POTASSIUM 3.7 mmol/L (3.5-5.1); SODIUM SERUM 142 mmol/L (136-145)
[2022-07-23] MEDS: SODIUM CHLORIDE 0.9% 1,000 ML IV SCH (18:17)
[2022-07-23 20:28] VITALS: BP 151/88
[2022-07-23] MEDS: CefTRIAXone 1 GM/DEXTROSE 50 ML IV SCH (20:49)
[2022-07-23] MEDS: METOPROLOL TARTRATE 25 MG TABLET PO SCH (20:56)
[2022-07-24] VITALS (7 sets, daily range): BP systolic 124–163; BP diastolic 60–90
[2022-07-24] MEDS: HEPARIN SODIUM,PORCINE 5,000 UNITS/ML VIAL SQ SCH ×3 (00:13→15:01)
[2022-07-24] MEDS: SODIUM CHLORIDE 0.9% 1,000 ML IV SCH ×2 (06:07→20:55)
[2022-07-24 06:56] LABS: GLUCOMETER DEV NAME(LOC) 5N.1C; GLUCOSE,POINT OF CARE 165 MG/DL (70-110)
[2022-07-24 07:11] LABS: BASOPHILS % (AUTO) 0.4 % (0.0-2.0); EOSINOPHILS % (AUTO) 1.1 % (1.0-6.0); HEMATOCRIT 35.9 % (36-46); LYMPHOCYTES # (AUTO) 0.6 K/uL (1.0-4.8); LYMPHOCYTES % (AUTO) 5.8 % (22.0-44.0); MEAN CORPUSCULAR HEMOGLOBIN 22.5 pg (26.0-34.0); MEAN CORPUSCULAR HGB CONC 30.8 G/dL (31.0-37.0); MEAN CORPUSCULAR VOLUME 73 fL (80-100); MONOCYTES # (AUTO) 0.5 K/uL (0.1-1.0); NEUTROPHILS # (AUTO) 9.4 K/uL (1.8-7.7); PLATELET COUNT (AUTO) 279 K/uL (150-450)
[2022-07-24 07:23] LABS: ANION GAP 11 mmol/L (8-16); CALCIUM, TOTAL 8.9 mg/dL (8.8-10.5); CARBON DIOXIDE 22 mmol/L (22-29); CHLORIDE 109 mmol/L (98-107); CREATININE 0.68 mg/dL (0.60-1.30); GLOMERULAR FILTR. RATE CALC > 60 mL/min (>60); GLUCOSE,RANDOM 161 mg/dL (70-110); POTASSIUM 3.5 mmol/L (3.5-5.1); SODIUM SERUM 142 mmol/L (136-145)
[2022-07-24 07:29] LABS: NEUTROPHILS % (AUTO) 87.7 % (40.0-70.0)
[2022-07-24] MEDS: DILTIAZEM HCL 30 MG TABLET PO SCH ×3 (09:33→20:55)
[2022-07-24] MEDS: DOCUSATE SODIUM 100 MG CAPSULE PO SCH ×2 (09:34→21:00)
[2022-07-24] MEDS: METOPROLOL TARTRATE 25 MG TABLET PO SCH (09:34)
[2022-07-24] MEDS: CLOPIDOGREL BISULFATE 75 MG TABLET PO SCH (10:15)
[2022-07-24] MEDS: METOPROLOL TARTRATE 50 MG TABLET PO SCH (20:55)
[2022-07-24] MEDS: CefTRIAXone 1 GM/DEXTROSE 50 ML IV SCH (20:56)
[2022-07-25] MEDS: HEPARIN SODIUM,PORCINE 5,000 UNITS/ML VIAL SQ SCH ×4 (00:23→23:31)
[2022-07-25 00:31] VITALS: BP 131/86
[2022-07-25 08:00] VITALS: BP 156/86
[2022-07-25] MEDS: DILTIAZEM HCL 30 MG TABLET PO SCH ×3 (08:49→20:44)
[2022-07-25] MEDS: CLOPIDOGREL BISULFATE 75 MG TABLET PO SCH (08:49)
[2022-07-25] MEDS: METOPROLOL TARTRATE 50 MG TABLET PO SCH ×2 (08:49→20:44)
[2022-07-25] MEDS: DOCUSATE SODIUM 100 MG CAPSULE PO SCH ×2 (08:49→20:44)
[2022-07-25 11:50] VITALS: BP 110/53
[2022-07-25] MEDS ORDERED: BISACODYL 10 MG RECTAL RECTAL SUPPOSITORY PR PRN (16:45)
[2022-07-25] MEDS ORDERED: MAGNESIUM HYDROXIDE SUSPENSION 30 ML UDCUP PO PRN (16:45)
[2022-07-25 17:10] VITALS: BP 129/76
[2022-07-25] MEDS: CefTRIAXone 1 GM/DEXTROSE 50 ML IV SCH (20:44)
[2022-07-25 22:05] VITALS: BP 109/58
[2022-07-26 00:20] VITALS: BP 122/56
[2022-07-26] MEDS: HEPARIN SODIUM,PORCINE 5,000 UNITS/ML VIAL SQ SCH (08:00)
[2022-07-26 08:13] VITALS: BP 118/62
[2022-07-26] MEDS: METOPROLOL TARTRATE 50 MG TABLET PO SCH (09:00)
[2022-07-26] MEDS: CLOPIDOGREL BISULFATE 75 MG TABLET PO SCH (09:00)
[2022-07-26] MEDS: DOCUSATE SODIUM 100 MG CAPSULE PO SCH (09:00)
[2022-07-26 10:47] VITALS: BP 166/89
[2022-07-26] MEDS ORDERED: DOCU-385 PO (11:27)
[2022-07-26] MEDS ORDERED: HEPA500018 SQ (11:28)
== END 2022-07-26 10:51 | DRG 689 ==
LOC: EMS 17:22 → 6S 23:43 → 5S 07-20 10:55
PROVIDERS: ADMIT Internal Medicine; ATTEND Internal Medicine
PROC: 4A00X4Z Measurement of Central Nervous Electrical Activity, External Approach (ICD-10-PCS; principal; 2022-07-18)
DX: N39.0 Urinary tract infection, site not specified (principal); G92.9 Unspecified toxic encephalopathy; E44.0 Moderate protein-calorie malnutrition; I50.42 Chronic combined systolic (congestive) and diastolic (congestive) heart failure; R65.10 Systemic inflammatory response syndrome (SIRS) of non-infectious origin without acute organ dysfunction; I11.0 Hypertensive heart disease with heart failure; E78.00 Pure hypercholesterolemia, unspecified; Z20.822 Contact with and (suspected) exposure to COVID-19; F22 Delusional disorders; M19.90 Unspecified osteoarthritis, unspecified site; E87.6 Hypokalemia; D63.8 Anemia in other chronic diseases classified elsewhere; I35.0 Nonrheumatic aortic (valve) stenosis; F03.90 Unspecified dementia, unspecified severity, without behavioral disturbance, psychotic disturbance, mood disturbance, and anxiety; E11.319 Type 2 diabetes mellitus with unspecified diabetic retinopathy without macular edema; H54.8 Legal blindness, as defined in USA; R53.81 Other malaise; E86.1 Hypovolemia; K21.9 Gastro-esophageal reflux disease without esophagitis; Z95.2 Presence of prosthetic heart valve; Z79.899 Other long term (current) drug therapy; Z79.01 Long term (current) use of anticoagulants; R00.0 Tachycardia, unspecified
CPT/HCPCS: 70450; 70496; 70498; 71045; 80048; 80053; 81001; 82962; 83605; 83735; 84443; 84484; 85025; 85610; 85730; 87040; 87086; 87186; 93005; 93306; 95816; 97161; 97167; 97530; 97535; 99285; J0360; J0696; J1644; J2060; J3490; J7030; J7040; J7050; J7120; Q9967; 36415-L1; 36415-TC

== ENCOUNTER 2022-11-18 16:46 | Emergency (ER) | payer MEDICARE, OTHER ==
[~2022-11-18] VITALS: Ht 157.5 cm; Wt 38.6 kg
[~2022-11-18 16:46] MED LIST changes: -ALBU18HF12 IH; -AMLO-257 PO; -ATOR40TA71 PO; -BUDE90AE PO; -CEPH-556 PO; +DOCU-385 PO; -FAMO20 PO; -FURO20 PO; -GABA-529 PO; +HEPA500018 SQ; -LORazepam 2 MG/ML VIAL ONE; -POLY17PO47 PO; -POTA8TAB71 PO
[2022-11-18 17:03] VITALS: TEMP 98
[2022-11-18] MEDS ORDERED: ATOR40TA71 PO (17:05)
[2022-11-18] MEDS ORDERED: POTA8CAP20 PO (17:05)
[2022-11-18] MEDS ORDERED: FAMO20 PO (17:05)
[2022-11-18] MEDS ORDERED: METO50 PO (17:05)
[2022-11-18] MEDS ORDERED: EMPA10TA3 PO (17:05)
[2022-11-18 19:35] VITALS: BP 121/56; PULSE 84; RESP 16
[2022-11-18 20:26] LABS: BASOPHILS % (AUTO) 0.4 % (0.0-2.0); EOSINOPHILS % (AUTO) 1.8 % (1.0-6.0); HEMATOCRIT 28.9 % (36-46); HEMOGLOBIN 8.3 g/dL (12.0-16.0); LYMPHOCYTES # (AUTO) 1.2 K/uL (1.0-4.8); MEAN CORPUSCULAR HGB CONC 28.6 G/dL (31.0-37.0); MEAN CORPUSCULAR VOLUME 66 fL (80-100); MONOCYTES # (AUTO) 0.6 K/uL (0.1-1.0); NEUTROPHILS # (AUTO) 8.1 K/uL (1.8-7.7); NEUTROPHILS % (AUTO) 79.8 % (40.0-70.0); PLATELET COUNT (AUTO) 233 K/uL (150-450); RED BLOOD CELL COUNT(AUTO) 4.35 MIL/uL (4.00-5.20); RED CELL DISTRIBUTION WIDTH 20.6 % (11.5-14.5); WHITE BLOOD COUNT (AUTO) 10.1 K/uL (4.5-11.0)
[2022-11-18 20:38] LABS: ALANINE AMINOTRANSFERASE 6 U/L (12-78); ALBUMIN 2.9 g/dL (3.4-5.0); ALKALINE PHOSPHATASE 104 U/L (46-116); ANION GAP 10 mmol/L (8-16); ASPARTATE AMINOTRANSFERASE 17 U/L (15-37); BILIRUBIN,TOTAL 0.4 mg/dL (0.1-1.0); CALCIUM, TOTAL 8.7 mg/dL (8.8-10.5); CARBON DIOXIDE 29 mmol/L (22-29); CHLORIDE 106 mmol/L (98-107); CREATININE 0.66 mg/dL (0.60-1.30); GLOMERULAR FILTR. RATE CALC > 60 mL/min (>60); GLUCOSE,RANDOM 104 mg/dL (70-110); SODIUM SERUM 145 mmol/L (136-145); TOTAL PROTEIN, SERUM 7.4 g/dL (6.4-8.2); UREA NITROGEN, BLOOD 15 mg/dL (7-18)
[2022-11-18 20:50] LABS: POTASSIUM 2.9 mmol/L (3.5-5.1)
[2022-11-18] MEDS ORDERED: POTASSIUM CHLORIDE 20 MEQ ER TABLET PO ONE (21:00)
== END 2022-11-18 21:25 | disposition home or self-care (01) ==
LOC: EMS 17:09
DX: D64.9 Anemia, unspecified (principal); E87.6 Hypokalemia; M19.90 Unspecified osteoarthritis, unspecified site; I11.0 Hypertensive heart disease with heart failure; I50.9 Heart failure, unspecified; E78.00 Pure hypercholesterolemia, unspecified; H54.8 Legal blindness, as defined in USA; Z98.890 Other specified postprocedural states
CPT/HCPCS: 80053; 82271; 83735; 85025; 86850; 86900; 86901; 99283

== ENCOUNTER 2022-11-24 03:49 | Inpatient (IN) | payer MEDICARE, OTHER ==
[~2022-11-24] VITALS: Ht 149.9 cm; Wt 39.9 kg
[2022-11-24] VITALS (11 sets, daily range): BP systolic 104–157; BP diastolic 55–85; PULSE 61–83; RESP 18–20; TEMP 97.5–99
[~2022-11-24 03:49] MED LIST changes: +ATOR40TA71 PO; +EMPA10TA3 PO; +FAMO20 PO; +METO50 PO; +POTA8CAP20 PO
[2022-11-24] MEDS ORDERED: ACETAMINOPHEN 325 MG TABLET PO ONE (04:15)
[2022-11-24 04:21] LABS: BASOPHILS % (AUTO) 0.6 % (0.0-2.0); EOSINOPHILS % (AUTO) 2.7 % (1.0-6.0); HEMATOCRIT 26.2 % (36-46); HEMOGLOBIN 7.5 g/dL (12.0-16.0); LYMPHOCYTES # (AUTO) 1.1 K/uL (1.0-4.8); LYMPHOCYTES % (AUTO) 15.7 % (22.0-44.0); MEAN CORPUSCULAR HEMOGLOBIN 18.8 pg (26.0-34.0); MEAN CORPUSCULAR HGB CONC 28.6 G/dL (31.0-37.0); MEAN CORPUSCULAR VOLUME 66 fL (80-100); MONOCYTES # (AUTO) 0.5 K/uL (0.1-1.0); MONOCYTES % (AUTO) 6.4 % (2.0-9.0); NEUTROPHILS # (AUTO) 5.4 K/uL (1.8-7.7); NEUTROPHILS % (AUTO) 74.6 % (40.0-70.0); PLATELET COUNT (AUTO) 228 K/uL (150-450); RED BLOOD CELL COUNT(AUTO) 3.97 MIL/uL (4.00-5.20); RED CELL DISTRIBUTION WIDTH 20.6 % (11.5-14.5); WHITE BLOOD COUNT (AUTO) 7.2 K/uL (4.5-11.0)
[2022-11-24 04:35] LABS: ALANINE AMINOTRANSFERASE 6 U/L (12-78); ALBUMIN 2.7 g/dL (3.4-5.0); ALKALINE PHOSPHATASE 90 U/L (46-116); ANION GAP 10 mmol/L (8-16); ASPARTATE AMINOTRANSFERASE 16 U/L (15-37); BILIRUBIN,TOTAL 0.4 mg/dL (0.1-1.0); CALCIUM, TOTAL 8.2 mg/dL (8.8-10.5); CARBON DIOXIDE 27 mmol/L (22-29); CHLORIDE 107 mmol/L (98-107); CREATINE KINASE, TOTAL ONLY 38 U/L (26-192); CREATININE 0.61 mg/dL (0.60-1.30); GLOMERULAR FILTR. RATE CALC > 60 mL/min (>60); GLUCOSE,RANDOM 100 mg/dL (70-110); SODIUM SERUM 144 mmol/L (136-145); TOTAL PROTEIN, SERUM 6.8 g/dL (6.4-8.2); UREA NITROGEN, BLOOD 15 mg/dL (7-18)
[2022-11-24 04:38] LABS: B-TYPE NATRIURETIC PEPTIDE 145 pg/mL (0-100)
[2022-11-24 04:39] LABS: POTASSIUM 2.6 mmol/L (3.5-5.1); TROPONIN I-HIGH SENSITIVITY 43 ng/L (<51)
[2022-11-24] MEDS ORDERED: POTASSIUM CHLORIDE 20 MEQ ER TABLET PO ONE (04:45)
[2022-11-24 04:50] LABS: RBC MORPHOLOGY COMMENT ABNORMAL RBC MORPH
[2022-11-24] MEDS ORDERED: ACETAMINOPHEN 325 MG TABLET PO PRN (05:15)
[2022-11-24] MEDS ORDERED: ONDANSETRON HCL 4 MG/2 ML VIAL IVP PRN (05:15)
[2022-11-24 05:28] LABS: % IRON SATURATION 3.1 % (22-44)
[2022-11-24] MEDS: POTASSIUM CHL 10 MEQ/WATER 50 ML IV SCH ×2 (05:38→06:39)
[2022-11-24 06:27] LABS: APPEARANCE,URINE CLEAR (CLEAR); BILIRUBIN,URINE NEGATIVE (NEGATIVE); COLOR,URINE LIGHT YELLOW (YELLOW); GLUCOSE, URINE (UA) 300-500 mg/dL (NEGATIVE); KETONES,URINE NEGATIVE (NEGATIVE); LEUKOCYTE ESTERASE ,URINE SMALL (NEGATIVE); NITRATE,URINE NEGATIVE (NEGATIVE); OCCULT BLOOD,URINE NEGATIVE (NEGATIVE); PH,URINE 6.5 (5.0-8.0); PROTEIN,URINE NEGATIVE (NEGATIVE); SPECIFIC GRAVITIY, URINE 1.012 (1.003-1.030); UROBILINOGEN,URINE <=1.0 mg/dL (<=1.0)
[2022-11-24 07:45] LABS: BACTERIA,URINE Many /HPF (None Seen); RBC,URINE None Seen /HPF (0-2); SQUAMOUS EPITHELIAL CELL,UR Few /LPF (None Seen)
[2022-11-24] MEDS ORDERED: HEPARIN SODIUM,PORCINE 5,000 UNITS/ML VIAL SQ SCH (08:00)
[2022-11-24] MEDS ORDERED: POTASSIUM CHL 20 MEQ/0.9% NS 1,000 ML IV SCH (08:15)
[2022-11-24 08:31] LABS: TROPONIN I-HIGH SENSITIVITY 30 ng/L (<51)
[2022-11-24] MEDS ORDERED: IOHEXOL 350 MG/ML 100 ML VIAL ONE (08:33)
[2022-11-24] MEDS ORDERED: SODIUM CHLORIDE 0.9% 100 ML ONE (08:33)
[2022-11-24] MEDS: CefTRIAXone 1 GM/DEXTROSE 50 ML IV SCH (11:37)
[2022-11-24] MEDS: DOCUSATE SODIUM 100 MG CAPSULE PO SCH ×2 (11:38→20:13)
[2022-11-24] MEDS: FAMOTIDINE 20 MG TABLET PO SCH (11:38)
[2022-11-24] MEDS: ATORVASTATIN CALCIUM 40 MG TABLET PO SCH (11:38)
[2022-11-24] MEDS: CLOPIDOGREL BISULFATE 75 MG TABLET PO SCH (11:38)
[2022-11-24] MEDS: METOPROLOL TARTRATE 50 MG TABLET PO SCH ×2 (11:39→20:13)
[2022-11-24 12:59] LABS: ANION GAP 5 mmol/L (8-16); CALCIUM, TOTAL 7.6 mg/dL (8.8-10.5); CARBON DIOXIDE 28 mmol/L (22-29); CHLORIDE 110 mmol/L (98-107); CREATININE 0.44 mg/dL (0.60-1.30); GLOMERULAR FILTR. RATE CALC > 60 mL/min (>60); GLUCOSE,RANDOM 99 mg/dL (70-110); SODIUM SERUM 143 mmol/L (136-145); UREA NITROGEN, BLOOD 9 mg/dL (7-18)
[2022-11-24 13:00] LABS: POTASSIUM 2.9 mmol/L (3.5-5.1)
[2022-11-24 15:32] LABS: BASOPHILS % (AUTO) 0.7 % (0.0-2.0); HEMATOCRIT 23.5 % (36-46); LYMPHOCYTES # (AUTO) 0.6 K/uL (1.0-4.8); LYMPHOCYTES % (AUTO) 10.3 % (22.0-44.0); MEAN CORPUSCULAR HEMOGLOBIN 18.6 pg (26.0-34.0); MEAN CORPUSCULAR HGB CONC 28.1 G/dL (31.0-37.0); MEAN CORPUSCULAR VOLUME 66 fL (80-100); MONOCYTES # (AUTO) 0.4 K/uL (0.1-1.0); MONOCYTES % (AUTO) 7.1 % (2.0-9.0); NEUTROPHILS # (AUTO) 4.4 K/uL (1.8-7.7); NEUTROPHILS % (AUTO) 79.9 % (40.0-70.0); PLATELET COUNT (AUTO) 198 K/uL (150-450); RED BLOOD CELL COUNT(AUTO) 3.55 MIL/uL (4.00-5.20); RED CELL DISTRIBUTION WIDTH 20.4 % (11.5-14.5); WHITE BLOOD COUNT (AUTO) 5.5 K/uL (4.5-11.0)
[2022-11-24 15:54] LABS: HEMOGLOBIN 6.6 g/dL (12.0-16.0)
[2022-11-24] MEDS ORDERED: POTASSIUM CHLORIDE 20 MEQ ER TABLET PO PRN (16:15)
[2022-11-24 16:25] LABS: RBC MORPHOLOGY COMMENT ABNORMAL RBC MORPH
[2022-11-24] MEDS: POTASSIUM CHL 10 MEQ/WATER 50 ML IV PRN ×4 (16:26→19:51)
[2022-11-24] MEDS ORDERED: SODIUM CHLORIDE 0.9% 250 ML IV ONE (17:37)
[2022-11-24] MEDS ORDERED: SODIUM CHLORIDE 0.9% 1,000 ML ONE (21:29)
[2022-11-25] VITALS (10 sets, daily range): BP systolic 115–186; BP diastolic 55–85; PULSE 68–115; RESP 18–20; TEMP 98–99
[2022-11-25 06:29] LABS: BASOPHILS % (AUTO) 0.6 % (0.0-2.0); EOSINOPHILS % (AUTO) 2.9 % (1.0-6.0); HEMATOCRIT 32.8 % (36-46); HEMOGLOBIN 9.6 g/dL (12.0-16.0); LYMPHOCYTES # (AUTO) 0.6 K/uL (1.0-4.8); LYMPHOCYTES % (AUTO) 7.8 % (22.0-44.0); MEAN CORPUSCULAR HEMOGLOBIN 20.3 pg (26.0-34.0); MEAN CORPUSCULAR HGB CONC 29.1 G/dL (31.0-37.0); MEAN CORPUSCULAR VOLUME 70 fL (80-100); MONOCYTES # (AUTO) 0.5 K/uL (0.1-1.0); NEUTROPHILS # (AUTO) 6.8 K/uL (1.8-7.7); NEUTROPHILS % (AUTO) 82.7 % (40.0-70.0); PLATELET COUNT (AUTO) 235 K/uL (150-450); RED CELL DISTRIBUTION WIDTH 22.4 % (11.5-14.5); WHITE BLOOD COUNT (AUTO) 8.2 K/uL (4.5-11.0)
[2022-11-25 07:03] LABS: ANION GAP 10 mmol/L (8-16); CALCIUM, TOTAL 8.6 mg/dL (8.8-10.5); CARBON DIOXIDE 24 mmol/L (22-29); CHLORIDE 108 mmol/L (98-107); CREATININE 0.61 mg/dL (0.60-1.30); GLOMERULAR FILTR. RATE CALC > 60 mL/min (>60); GLUCOSE,RANDOM 123 mg/dL (70-110); POTASSIUM 3.8 mmol/L (3.5-5.1); SODIUM SERUM 142 mmol/L (136-145); UREA NITROGEN, BLOOD 11 mg/dL (7-18)
[2022-11-25 08:31] LABS: RBC MORPHOLOGY COMMENT ABNORMAL RBC MORPH
[2022-11-25] MEDS: ATORVASTATIN CALCIUM 40 MG TABLET PO SCH (08:52)
[2022-11-25] MEDS: HEPARIN SODIUM,PORCINE 5,000 UNITS/ML VIAL SQ SCH ×3 (08:52→23:42)
[2022-11-25] MEDS: FAMOTIDINE 20 MG TABLET PO SCH (08:52)
[2022-11-25] MEDS: DOCUSATE SODIUM 100 MG CAPSULE PO SCH ×2 (08:52→21:00)
[2022-11-25] MEDS: METOPROLOL TARTRATE 50 MG TABLET PO SCH ×2 (08:52→21:00)
[2022-11-25] MEDS: CLOPIDOGREL BISULFATE 75 MG TABLET PO SCH (08:52)
[2022-11-25] MEDS: CefTRIAXone 1 GM/DEXTROSE 50 ML IV SCH (11:48)
[2022-11-25] MEDS ORDERED: SODIUM CHLORIDE 0.9% 500 ML IV ONE (11:49)
[2022-11-25] MEDS ORDERED: FURO20TA4 PO (13:40)
[2022-11-25] MEDS ORDERED: HYDR25TA PO (13:40)
[2022-11-25] MEDS ORDERED: FLUT12AE20 IH (13:40)
[2022-11-25] MEDS ORDERED: AMLO5TAB66 PO (13:40)
[2022-11-26 04:34] VITALS: BP 130/59; PULSE 68; RESP 18
[2022-11-26 06:30] LABS: BASOPHILS % (AUTO) 0.9 % (0.0-2.0); EOSINOPHILS % (AUTO) 4.4 % (1.0-6.0); HEMATOCRIT 29.2 % (36-46); HEMOGLOBIN 8.7 g/dL (12.0-16.0); LYMPHOCYTES % (AUTO) 13.6 % (22.0-44.0); MEAN CORPUSCULAR HGB CONC 29.7 G/dL (31.0-37.0); MEAN CORPUSCULAR VOLUME 71 fL (80-100); MONOCYTES # (AUTO) 0.6 K/uL (0.1-1.0); MONOCYTES % (AUTO) 8.9 % (2.0-9.0); NEUTROPHILS # (AUTO) 5.1 K/uL (1.8-7.7); NEUTROPHILS % (AUTO) 72.2 % (40.0-70.0); PLATELET COUNT (AUTO) 200 K/uL (150-450); RED BLOOD CELL COUNT(AUTO) 4.14 MIL/uL (4.00-5.20); RED CELL DISTRIBUTION WIDTH 21.8 % (11.5-14.5); WHITE BLOOD COUNT (AUTO) 7.1 K/uL (4.5-11.0)
[2022-11-26 07:21] VITALS: BP 154/50; PULSE 72; RESP 18; TEMP 98
[2022-11-26 08:16] LABS: RBC MORPHOLOGY COMMENT ABNORMAL RBC MORPH
[2022-11-26] MEDS: METOPROLOL TARTRATE 50 MG TABLET PO SCH ×2 (08:29→20:03)
[2022-11-26] MEDS: CLOPIDOGREL BISULFATE 75 MG TABLET PO SCH (08:29)
[2022-11-26] MEDS: ATORVASTATIN CALCIUM 40 MG TABLET PO SCH (08:29)
[2022-11-26] MEDS: FAMOTIDINE 20 MG TABLET PO SCH (08:30)
[2022-11-26] MEDS: DOCUSATE SODIUM 100 MG CAPSULE PO SCH ×2 (08:30→20:03)
[2022-11-26] MEDS: HEPARIN SODIUM,PORCINE 5,000 UNITS/ML VIAL SQ SCH ×3 (08:30→23:26)
[2022-11-26 11:18] VITALS: BP 147/57; PULSE 58; RESP 18; TEMP 98
[2022-11-26] MEDS: CefTRIAXone 1 GM/DEXTROSE 50 ML IV SCH (11:49)
[2022-11-26] MEDS ORDERED: CEPH-558 PO (13:56)
[2022-11-26] MEDS ORDERED: PANT-31 PO (13:59)
[2022-11-26 15:34] LABS: % IRON SATURATION 4.8 % (22-44)
[2022-11-26 18:10] VITALS: BP 151/80; PULSE 65; RESP 18; TEMP 97.6
[2022-11-26 19:59] VITALS: BP 146/66; PULSE 72; RESP 18; TEMP 97.8
[2022-11-27 02:45] VITALS: BP 138/82; PULSE 78; RESP 18; TEMP 98.3
[2022-11-27 07:03] LABS: BASOPHILS % (AUTO) 0.6 % (0.0-2.0); EOSINOPHILS % (AUTO) 5.4 % (1.0-6.0); HEMATOCRIT 30.6 % (36-46); HEMOGLOBIN 9.2 g/dL (12.0-16.0); LYMPHOCYTES # (AUTO) 0.7 K/uL (1.0-4.8); LYMPHOCYTES % (AUTO) 10.5 % (22.0-44.0); MEAN CORPUSCULAR HEMOGLOBIN 20.5 pg (26.0-34.0); MEAN CORPUSCULAR HGB CONC 29.9 G/dL (31.0-37.0); MEAN CORPUSCULAR VOLUME 69 fL (80-100); MONOCYTES # (AUTO) 0.6 K/uL (0.1-1.0); MONOCYTES % (AUTO) 9.5 % (2.0-9.0); PLATELET COUNT (AUTO) 241 K/uL (150-450); RED BLOOD CELL COUNT(AUTO) 4.47 MIL/uL (4.00-5.20); RED CELL DISTRIBUTION WIDTH 22.4 % (11.5-14.5); WHITE BLOOD COUNT (AUTO) 6.8 K/uL (4.5-11.0)
[2022-11-27 08:16] LABS: RBC MORPHOLOGY COMMENT ABNORMAL RBC MORPH
[2022-11-27] MEDS: HEPARIN SODIUM,PORCINE 5,000 UNITS/ML VIAL SQ SCH ×2 (08:24→16:03)
[2022-11-27] MEDS: FAMOTIDINE 20 MG TABLET PO SCH (08:25)
[2022-11-27] MEDS: ATORVASTATIN CALCIUM 40 MG TABLET PO SCH (08:25)
[2022-11-27] MEDS: METOPROLOL TARTRATE 50 MG TABLET PO SCH (08:26)
[2022-11-27] MEDS: DOCUSATE SODIUM 100 MG CAPSULE PO SCH (08:26)
[2022-11-27 08:45] VITALS: BP 148/78; PULSE 75; RESP 18; TEMP 98.9
[2022-11-27] MEDS ORDERED: SODIUM CHLORIDE 0.9% 500 ML IV ONE (10:38)
[2022-11-27] MEDS ORDERED: PANT-31 PO (11:08)
[2022-11-27] MEDS: CefTRIAXone 1 GM/DEXTROSE 50 ML IV SCH (11:28)
== END 2022-11-27 17:15 | disposition home or self-care (01) | DRG 811 ==
LOC: EMS 03:50 → 5S 06:30 → 6S 11-26 17:38
PROVIDERS: ADMIT Internal Medicine; ATTEND Internal Medicine
PROC: 30233N1 Transfusion of Nonautologous Red Blood Cells into Peripheral Vein, Percutaneous Approach (ICD-10-PCS; principal; 2022-11-24)
DX: D50.9 Iron deficiency anemia, unspecified (principal); E43 Unspecified severe protein-calorie malnutrition; Z68.1 Body mass index [BMI] 19.9 or less, adult; N39.0 Urinary tract infection, site not specified; I25.10 Atherosclerotic heart disease of native coronary artery without angina pectoris; F03.90 Unspecified dementia, unspecified severity, without behavioral disturbance, psychotic disturbance, mood disturbance, and anxiety; E87.6 Hypokalemia; R62.7 Adult failure to thrive; E11.9 Type 2 diabetes mellitus without complications; E78.00 Pure hypercholesterolemia, unspecified; R07.9 Chest pain, unspecified; I11.0 Hypertensive heart disease with heart failure; I50.9 Heart failure, unspecified; I35.0 Nonrheumatic aortic (valve) stenosis; J45.909 Unspecified asthma, uncomplicated; K21.9 Gastro-esophageal reflux disease without esophagitis; M19.90 Unspecified osteoarthritis, unspecified site; I25.2 Old myocardial infarction; Z79.01 Long term (current) use of anticoagulants; Z79.899 Other long term (current) drug therapy; Z95.2 Presence of prosthetic heart valve
CPT/HCPCS: 71045; 71275; 80048; 80053; 81001; 82271; 82550; 82728; 83540; 83550; 83735; 83880; 84132; 84484; 85025; 85045; 86850; 86900; 86901; 86923; 87081; 87086; 87186; 93005; 97163; 97530; 99285; J0696; J1644; J2405; J3480; J7030; J7040; J7050; P9016; Q9967; 36415-L1; 36415-TC

== ENCOUNTER 2022-12-06 05:14 | Emergency (ER) | payer MEDICARE, OTHER ==
[~2022-12-06] VITALS: Ht 160 cm; Wt 62.0 kg
[~2022-12-06 05:14] MED LIST changes: +AMLO5TAB66 PO; +CEPH-558 PO; +FLUT12AE20 IH; +FURO20TA4 PO; -HEPA500018 SQ; -METO-391 PO; +PANT-31 PO
[2022-12-06 05:25] VITALS: TEMP 98.2
[2022-12-06 06:21] LABS: BASOPHILS % (AUTO) 0.6 % (0.0-2.0); EOSINOPHILS % (AUTO) 2.4 % (1.0-6.0); HEMATOCRIT 31.3 % (36-46); HEMOGLOBIN 9.5 g/dL (12.0-16.0); LYMPHOCYTES # (AUTO) 1.4 K/uL (1.0-4.8); LYMPHOCYTES % (AUTO) 16.9 % (22.0-44.0); MEAN CORPUSCULAR HEMOGLOBIN 21.1 pg (26.0-34.0); MEAN CORPUSCULAR HGB CONC 30.3 G/dL (31.0-37.0); MEAN CORPUSCULAR VOLUME 70 fL (80-100); MONOCYTES # (AUTO) 0.6 K/uL (0.1-1.0); MONOCYTES % (AUTO) 7.8 % (2.0-9.0); NEUTROPHILS # (AUTO) 5.8 K/uL (1.8-7.7); NEUTROPHILS % (AUTO) 72.3 % (40.0-70.0); PLATELET COUNT (AUTO) 274 K/uL (150-450); WHITE BLOOD COUNT (AUTO) 8.1 K/uL (4.5-11.0)
[2022-12-06 06:31] LABS: PROTHROMBIN TIME 10.3 SEC (9.4-11.6)
[2022-12-06 06:34] LABS: CREATINE KINASE, TOTAL ONLY 55 U/L (26-192)
[2022-12-06 06:35] LABS: ALANINE AMINOTRANSFERASE 8 U/L (12-78); ALBUMIN 2.9 g/dL (3.4-5.0); ALKALINE PHOSPHATASE 91 U/L (46-116); ANION GAP 10 mmol/L (8-16); ASPARTATE AMINOTRANSFERASE 17 U/L (15-37); BILIRUBIN,TOTAL 0.2 mg/dL (0.1-1.0); CALCIUM, TOTAL 8.3 mg/dL (8.8-10.5); CARBON DIOXIDE 26 mmol/L (22-29); CHLORIDE 108 mmol/L (98-107); GLOMERULAR FILTR. RATE CALC > 60 mL/min (>60); GLUCOSE,RANDOM 91 mg/dL (70-110); SODIUM SERUM 144 mmol/L (136-145); TOTAL PROTEIN, SERUM 7.4 g/dL (6.4-8.2); UREA NITROGEN, BLOOD 17 mg/dL (7-18)
[2022-12-06 06:47] LABS: POTASSIUM 2.7 mmol/L (3.5-5.1)
[2022-12-06 06:53] LABS: B-TYPE NATRIURETIC PEPTIDE 98 pg/mL (0-100)
[2022-12-06 07:00] LABS: TROPONIN I-HIGH SENSITIVITY 27 ng/L (<51)
[2022-12-06 07:21] LABS: BILIRUBIN,URINE NEGATIVE (NEGATIVE); COLOR,URINE LIGHT YELLOW (YELLOW); GLUCOSE, URINE (UA) >=1000 mg/dL (NEGATIVE); KETONES,URINE NEGATIVE (NEGATIVE); LEUKOCYTE ESTERASE ,URINE MODERATE (NEGATIVE); NITRATE,URINE NEGATIVE (NEGATIVE); OCCULT BLOOD,URINE NEGATIVE (NEGATIVE); PH,URINE 6.5 (5.0-8.0); PROTEIN,URINE TRACE mg/dL (NEGATIVE); SPECIFIC GRAVITIY, URINE 1.014 (1.003-1.030); UROBILINOGEN,URINE <=1.0 mg/dL (<=1.0)
[2022-12-06 07:22] LABS: APPEARANCE,URINE HAZY (CLEAR)
[2022-12-06 07:27] LABS: RBC,URINE None Seen /HPF (0-2)
[2022-12-06 07:28] LABS: BACTERIA,URINE None Seen /HPF (None Seen); SQUAMOUS EPITHELIAL CELL,UR Few /LPF (None Seen)
[2022-12-06] MEDS: POTASSIUM CHLORIDE 20 MEQ ER TABLET PO ONE ×2 (07:33→07:57)
[2022-12-06] MEDS ORDERED: POTASSIUM CHLORIDE 10% 40 MEQ/30 ML LIQUID UDCUP PO ONE (08:00)
[2022-12-06] MEDS ORDERED: SODIUM CHLORIDE 0.9% 1,000 ML IV ONE (08:15)
[2022-12-06] MEDS ORDERED: CEPHALEXIN MONOHYDRATE 500 MG CAPSULE PO ONE (08:15)
[2022-12-06 08:27] VITALS: BP 159/84; PULSE 100; RESP 20
[2022-12-06 09:07] LABS: TROPONIN I-HIGH SENSITIVITY 30 ng/L (<51)
[2022-12-06] MEDS ORDERED: CEPH-558 PO (09:20)
== END 2022-12-06 09:50 | disposition home or self-care (01) ==
LOC: EMS 05:16
DX: E87.6 Hypokalemia (principal); N39.0 Urinary tract infection, site not specified; R07.89 Other chest pain; M19.90 Unspecified osteoarthritis, unspecified site; J45.909 Unspecified asthma, uncomplicated; E11.9 Type 2 diabetes mellitus without complications; F03.90 Unspecified dementia, unspecified severity, without behavioral disturbance, psychotic disturbance, mood disturbance, and anxiety; I11.0 Hypertensive heart disease with heart failure; E78.00 Pure hypercholesterolemia, unspecified; Z98.890 Other specified postprocedural states
CPT/HCPCS: 99285; 96360; 71045; 80053; 81001; 82550; 83880; 84484; 85025; 85610; 85730; 36415; 87086; 87186; 93005; J7030

== ENCOUNTER 2023-05-22 15:33 | Emergency (ER) | payer MEDICARE, OTHER ==
[~2023-05-22] VITALS: Ht 149.9 cm; Wt 39.1 kg
[~2023-05-22 15:33] MED LIST changes: -AMLO5TAB66 PO; -CEPH-558 PO; -EMPA10TA3 PO; -FURO20TA4 PO; -METO50 PO; -PANT-31 PO; -POTA8CAP20 PO; +TRAM-559 PO
[2023-05-22] MEDS: HYDROCODONE/ACETAMINOPHEN 5-325 MG TABLET PO ONE (17:35)
[2023-05-22] MEDS ORDERED: METO-408 PO (17:43)
[2023-05-22] MEDS ORDERED: AMLO2.5T29 PO (17:43)
[2023-05-22] MEDS ORDERED: FURO20TA4 PO (17:43)
[2023-05-22] MEDS ORDERED: EZET10TA57 PO (17:43)
[2023-05-22] MEDS ORDERED: HYDR25TA PO (17:43)
[2023-05-22] MEDS ORDERED: FERR325T23 PO (17:43)
[2023-05-22] MEDS ORDERED: SLOWK8 PO (17:43)
[2023-05-22] MEDS ORDERED: TRAM-559 PO (22:56)
[2023-05-22 23:00] VITALS: BP 123/67; PULSE 84; RESP 20; TEMP 98.3
== END 2023-05-23 00:07 | disposition home or self-care (01) ==
LOC: EMS 15:38
DX: S72.002A Fracture of unspecified part of neck of left femur, initial encounter for closed fracture (principal); M25.552 Pain in left hip; J45.909 Unspecified asthma, uncomplicated; I11.0 Hypertensive heart disease with heart failure; I50.9 Heart failure, unspecified; K59.00 Constipation, unspecified; E78.00 Pure hypercholesterolemia, unspecified; K21.9 Gastro-esophageal reflux disease without esophagitis; D64.9 Anemia, unspecified; Z87.440 Personal history of urinary (tract) infections; X58.XXXA Exposure to other specified factors, initial encounter; Y93.89 Activity, other specified; Y92.89 Other specified places as the place of occurrence of the external cause; Y99.8 Other external cause status
CPT/HCPCS: 72100; 73503; 73700; 99284